=== PATIENT | female | born 1940 | race American Indian/Alaskan Native ===

== ENCOUNTER 2016-10-27 10:30 | Emergency (ER) | payer MEDICARE ==
--- NOTE | 2016-10-27 11:39 | Emergency Department Report ---
Chief Complaint: Abdominal Pain Stated Complaint: ADOMINAL PAIN Time Seen by Provider: 10/27/16 11:34 - HPI History of Present Illness: 76-year-old female presents today with abdominal pain 2-3 days. Patient states that she hasn't had a bowel movement ever since. Denies history of constipation. Denies fever, chills, chest pain, shortness of breath, nausea, vomiting. - ROS Review of Systems: Per HPI - Exam Vital Signs: Vital Signs 10/27/16 11:19 Temperature 97.8 F Pulse Rate 56 L Respiratory 18 Rate Blood Pressure 170/84 O2 Sat by Pulse 99 Oximetry Physical Exam: General: 76-year-old female in no acute distress. Well-developed, well- nourished. CV: Regular rate and rhythm. Lungs: Clear to auscultation bilaterally. Abdomen: Generalized tenderness to palpation. Nondistended. No guarding or rebound tenderness. MSE screening note: Focused history and physical exam performed. Due to findings the following was ordered: ED Disposition for MSE Condition: Stable Instructions: Abdominal Pain (ED)
[2016-10-27 12:06] LABS: Basophils % (Auto) 0.4 % (0.0-1.8); Eosinophils % (Auto) 1.4 % (0.0-4.3); Hematocrit 36.8 % (30.3-42.9); Hemoglobin 12.2 gm/dl (10.1-14.3); Mean Corpuscular HGB Conc 33 % (30-34); Mean Corpuscular Hemoglobin 30 pg (28-32); Mean Corpuscular Volume 90 fl (79-97); Platelet Count 199 K/mm3 (140-440); Red Blood Count 4.11 M/mm3 (3.65-5.03); Red Cell Distribution Width 13.6 % (13.2-15.2); White Blood Count 6.5 K/mm3 (4.5-11.0)
[2016-10-27 12:19] LABS: Amylase 102 units/L (27-131); BUN/Creatinine Ratio 16.25; Blood Urea Nitrogen 13 mg/dL (7-17); Calcium 9.1 mg/dL (8.4-10.2); Carbon Dioxide 29 mmol/L (22-30); Glucose 161 mg/dL (65-100); Lipase 39 units/L (13-60)
[2016-10-27 12:20] LABS: Anion Gap 16 mmol/L; Chloride 103.7 mmol/L (98-107); Potassium 3.7 mmol/L (3.6-5.0); Sodium 145 mmol/L (137-145)
--- NOTE | 2016-10-27 12:47 | XRay Report ---
ABDOMEN RADIOGRAPHS INDICATION: Constipation. COMPARISON: None similar. FINDINGS: Frontal abdominal radiographs demonstrate nonobstructive bowel gas pattern without focal suspicious calcifications, pneumatosis or pneumoperitoneum. Mild, usual colonic stool. Clear visualized lung bases. A battery pack overlies the left iliac bone with a probable left piriformis stimulator lead. Bladder tacking surgery. Demineralized bones with bilateral SI and hip degenerative changes. Multilevel spinal degenerative changes as well. Mild atherosclerotic aortoiliac calcifications. CONCLUSION: No acute abdominal radiographic abnormality with various findings, as above. Thank you for the opportunity to participate in this patient's care.
[2016-10-27] MEDS ORDERED: CEPHULAC PO ONE (17:35)
[2016-10-27] MEDS ORDERED: NACL ONE ×2 (17:40→17:57)
--- NOTE | 2016-10-27 17:40 | Emergency Department Report ---
HPI - General Chief Complaint: Abdominal Pain Time Seen by Provider: 10/27/16 11:34 - HPI HPI: Room 19 The patient is a 76-year-old female presenting with a chief complaint of abdominal pain. Patient states for the past 2 weeks she has intermittent lower abdominal pain described as "small and sharp" in nature. Patient denies nausea vomiting or diarrhea. The patient states she's been constipated and her last bowel movement occurred approximately 2-3 days ago. The patient states she normally has a bowel movement daily. Patient states she is able to pass flatus. Patient denies any history of fever. Location: Lower abdomen Duration:2 Weeks Quality: "small and sharp" Severity: Currently 0/10 Modifying factors: [see above] Context: [see above] Mode of transportation: Unknown ED Past Medical Hx - Past Medical History Hx Hypertension: Yes Hx CVA: Yes Hx Congestive Heart Failure: Yes Hx Diabetes: Yes Hx GERD: Yes Hx Arthritis: Yes Hx Asthma: Yes Hx COPD: Yes Hx Dementia: Yes Additional medical history: TIA. HIGH CHOLESTEROL - Surgical History Hx Cholecystectomy: Yes Hx Appendectomy: Yes Additional Surgical History: hysterectomy - Family History Family history: no significant - Social History Smoking Status: Never Smoker Substance Use Type: None, Other, Prescribed - Medications Home Medications: Home Medications Medication Instructions Recorded Confirmed Last Taken Type Montelukast [Singulair] 10 mg PO DAILY 06/20/13 03/03/16 03/02/16 History Atorvastatin Calcium [Lipitor] 20 mg PO QHS 09/13/15 03/03/16 03/02/16 History Cholecalciferol Vit D3 [Vitamin D3] 1,000 unit PO QDAY 09/13/15 03/03/16 History Omeprazole 40 mg PO DAILY 09/13/15 03/03/16 03/02/16 History Spironolactone [Aldactone] 25 mg PO DAILY 09/13/15 03/03/16 03/02/16 History Donepezil HCl [Donepezil HCl Odt] 5 mg PO QDAY 12/08/15 03/03/16 03/02/16 History Furosemide [Lasix TAB] 40 mg PO QDAY 12/08/15 03/03/16 03/02/16 History HYDROcodone/APAP 5-325 [[place] 1 each PO Q6HR PRN 04/05/1603/03/16 12/08/15 History 5-325 mg TAB] Simvastatin [Zocor TAB] 40 mg PO QHS 12/08/15 03/03/16 03/02/16 History Sitagliptin Phosphate [Januvia] 50 mg PO QDAY 12/08/15 03/03/16 03/02/16 History Lisinopril [Zestril TAB] 20 mg PO BID #60 tablet 12/09/15 03/03/16 03/02/16 Rx Metoprolol [Lopressor TAB] 100 mg PO BID tablet 12/09/15 03/03/16 03/02/16 Rx hydrALAZINE [Apresoline TAB] 25 mg PO Q8HR #90 tab 12/09/15 03/03/16 03/02/16 Rx Aspirin [Aspirin BABY CHEW TAB] 81 mg PO QDAY 03/03/16 03/03/16 03/03/16 History Polyethylene Glycol 3350 [Miralax 17 gm PO QDAY #30 packet 03/04/16 Unknown Rx 3350] Clotrimazole [Itch Relief] 15 gm TP TID #1 cream..g. 07/23/16 Unknown Rx Hydrocortisone 28.4 gm TP BID #1 cream..g. 07/23/16 Unknown Rx Hydroxyzine HCl 25 mg PO BID PRN #25 tablet 07/23/16 Unknown Rx Lactulose [Cephulac] 20 gm PO QDAY PRN #90 ml 10/27/16 Unknown Rx Sulfamethoxazole/Trimethoprim 1 each PO BID #14 tablet 10/27/16 Unknown Rx [Bactrim DS TAB] ED Review of Systems ROS: Stated complaint: ADOMINAL PAIN Other details as noted in HPI Comment: All other systems reviewed and negative Constitutional: denies: chills, fever Eyes: denies: eye pain, eye discharge, vision change ENT: denies: ear pain, throat pain Respiratory: denies: cough, shortness of breath, wheezing Cardiovascular: denies: chest pain, palpitations Endocrine: no symptoms reported Gastrointestinal: abdominal pain, constipation. denies: nausea, vomiting, diarrhea Genitourinary: denies: urgency, dysuria, discharge Musculoskeletal: denies: back pain, joint swelling, arthralgia Skin: denies: rash, lesions Neurological: denies: headache, weakness, paresthesias Psychiatric: denies: anxiety, depression Hematological/Lymphatic: denies: easy bleeding, easy bruising Physical Exam - Physical Exam Vital Signs: Vital Signs 10/27/16 11:19 Temperature 97.8 F Pulse Rate 56 L Respiratory 18 Rate Blood Pressure 170/84 O2 Sat by Pulse 99 Oximetry Physical Exam: GENERAL: The patient is well-developed well-nourished female lying on stretcher not appearing to be in acute distress. [] HEENT: Normocephalic. Atraumatic. Extraocular motions are intact. Patient has moist mucous membranes. NECK: Supple. Trachea midline CHEST/LUNGS: Clear to auscultation. There is no respiratory distress noted. HEART/CARDIOVASCULAR: Regular. There is no tachycardia. There is no gallop rub or murmur. ABDOMEN: Abdomen is soft, with mild discomfort to palpation in the left lower quadrant. Patient has normal bowel sounds. There is no abdominal distention. SKIN: There is no rash. There is no edema. There is no diaphoresis. NEURO: The patient is awake, alert, and oriented. The patient is cooperative. The patient has normal speech MUSCULOSKELETAL: There is no evidence of acute injury. ED Course Vital Signs 10/27/16 11:19 Temperature 97.8 F Pulse Rate 56 L Respiratory 18 Rate Blood Pressure 170/84 O2 Sat by Pulse 99 Oximetry ED Medical Decision Making - Lab Data Result diagrams: 10/27/16 11:52 10/27/16 11:52 Laboratory Tests 10/27/16 10/27/16 11:52 11:52 WBC 6.5 RBC 4.11 Hgb 12.2 Hct 36.8 MCV 90 MCH 30 MCHC 33 RDW 13.6 Plt Count 199 Lymph % (Auto) 30.3 [place] % (Auto) 8.1 H Eos % (Auto) 1.4 Baso % (Auto) 0.4 Lymph # 2.0 [place] # 0.5 Eos # 0.1 Baso # 0.0 Seg Neutrophils % 59.8 Seg Neutrophils # 3.9 Sodium 145 Potassium 3.7 Chloride 103.7 Carbon Dioxide 29 Anion Gap 16 BUN 13 Creatinine 0.8 Estimated GFR > 60 BUN/Creatinine Ratio 16.25 Glucose 161 H Calcium 9.1 Amylase 102 Lipase 39 Laboratory Tests 10/27/16 10/27/16 10/27/16 11:52 11:52 19:05 WBC 6.5 RBC 4.11 Hgb 12.2 Hct 36.8 MCV 90 MCH 30 MCHC 33 RDW 13.6 Plt Count 199 Lymph % (Auto) 30.3 [place] % (Auto) 8.1 H Eos % (Auto) 1.4 Baso % (Auto) 0.4 Lymph # 2.0 [place] # 0.5 Eos # 0.1 Baso # 0.0 Seg Neutrophils % 59.8 Seg Neutrophils # 3.9 Sodium 145 Potassium 3.7 Chloride 103.7 Carbon Dioxide 29 Anion Gap 16 BUN 13 Creatinine 0.8 Estimated GFR > 60 BUN/Creatinine Ratio 16.25 Glucose 161 H Calcium 9.1 Amylase 102 Lipase 39 Urine Color Yellow Urine Turbidity Clear Urine pH 7.0 Urine Protein <15 mg/dl Urine Glucose (UA) Neg Urine Ketones Neg Urine Blood Neg Urine Nitrite Neg Urine Bilirubin Neg Urine Urobilinogen < 2.0 Ur Leukocyte Esterase Mod Urine WBC (Auto) 21.0 H Urine RBC (Auto) 1.0 U Epithel Cells (Auto) < 1.0 Urine Mucus Few - Radiology Data Radiology results: report reviewed (CT abdomen the pelvis), image reviewed ( abdominal x-ray, CT abdomen and pelvis) interpreted by me: Abdominal x-ray-no air-fluid levels, no free air CT abdomen and pelvis (read by radiologist)-possible changes of duodenitis are seen in the [place]. Large left renal cysts are seen. No constipation is seen - Differential Diagnosis constipation, diverticulitis, SBO, UTI Critical care attestation.: If time is entered above; I have spent that time in minutes in the direct care of this critically ill patient, excluding procedure time. ED Disposition Clinical Impression: Abdominal pain, Constipation, UTI (urinary tract infection) Disposition: DISCHARGED TO HOME OR SELFCARE Is pt being admited?: No Does the pt Need Aspirin: No Condition: Stable Instructions: Abdominal Pain (ED) Additional Instructions: Return to the emergency department immediately should you develop worsening symptoms, fever, inability to tolerate food or liquid or any other concerns. Prescriptions: Lactulose [Cephulac] 20 gm PO QDAY PRN #90 ml PRN Reason: Constipation Sulfamethoxazole/Trimethoprim [Bactrim DS TAB] 1 each PO BID #14 tablet Referrals: PRIMARY CAREMD [Primary Care Provider] - 3-5 Days EDIS ORELLANA MD [Staff Physician] - 3-5 Days (Dr. Orellana is a urologist. Please follow up with him for further evaluation of your renal cyst) Time of Disposition: 19:52
--- NOTE | 2016-10-27 18:43 | Cat Scan Report ---
FINAL REPORT PROCEDURE: CT ABDOMEN PELVIS W CON TECHNIQUE: Computerized axial tomography of the abdomen and pelvis was performed after the IV injection of iodinated nonionic contrast. HISTORY: lower abd pain greatest on the left. Constipation COMPARISON: No prior studies are available for comparison. FINDINGS: There is a small hiatus hernia. There is wall thickening suspected in the duodenal bulb that could be from duodenitis. Normal appendix is seen. No evidence of bowel obstruction or constipation is seen. Liver and spleen appear normal. The gallbladder and pancreas display no abnormalities. Adrenal glands and abdominal aorta are normal in size. Stimulator lead is seen in the left side of the presacral space. No right renal abnormality is seen. 7.5 cm cyst is seen in the mid left kidney with a 2nd cyst seen more superiorly measuring 7.2 cm. No nephrolithiasis or hydronephrosis is seen. IMPRESSION: Possible changes of duodenitis are seen in the duodenal bulb. Large left renal cysts are seen. No constipation is seen.
[2016-10-27 19:38] LABS: Bilirubin,Urine NEG (Negative); Blood,Urine NEG (Negative); Ketones,Urine NEG (Negative); Leukocyte Esterase,Urine MOD (Negative); Mucus,Urine FEW /HPF; Nitrite,Urine NEG (Negative); Protein,Urine <15 mg/dL mg/dL (Negative); Urobilinogen,Urine < 2.0 mg/dL (<2.0)
[2016-10-27 20:16] VITALS: BP 154/59
== END 2016-10-27 20:19 | disposition home or self-care (01) ==
LOC: ED 10:30
DX: K59.00 Constipation, unspecified (principal); N39.0 Urinary tract infection, site not specified; I10 Essential (primary) hypertension; I50.9 Heart failure, unspecified; E11.9 Type 2 diabetes mellitus without complications; K21.9 Gastro-esophageal reflux disease without esophagitis; M19.90 Unspecified osteoarthritis, unspecified site; J44.9 Chronic obstructive pulmonary disease, unspecified; J45.909 Unspecified asthma, uncomplicated; F03.90 Unspecified dementia, unspecified severity, without behavioral disturbance, psychotic disturbance, mood disturbance, and anxiety; E78.00 Pure hypercholesterolemia, unspecified; Z90.49 Acquired absence of other specified parts of digestive tract; Z86.73 Personal history of transient ischemic attack (TIA), and cerebral infarction without residual deficits; Z90.710 Acquired absence of both cervix and uterus; Z79.82 Long term (current) use of aspirin
CPT/HCPCS: 36415; 74000; 74177; 80048; 81001; 82150; 83690; 85025; 99284; Q9967

== ENCOUNTER 2016-12-01 10:46 | Outpatient (CLI) | payer MEDICARE ==
--- NOTE | 2016-12-01 14:08 | Mammography Report ---
Bilateral mammogram: Compared to 11/30/15. CAD study utilized. Findings: The predominance of adipose tissue bilaterally. No mass or microcalcification. Normal axilla. Impression: Benign findings and followup recommended. BI-RADS CATEGORY: 2 = Benign ACR BI-RADS MAMMOGRAPHIC CODES: 0 = Needs additional imaging evaluation; 1 = Negative; 2 = Benign; 3 = Probably benign; 4 = Suspicious; 5 = Malignant; 6 = Known biopsy-proven malignancy COMMENT: 1. Dense breast tissue, i.e., adenosis, fibrocystic changes, etc., may obscure an underlying neoplasm. 2. Approximately 10% of cancers are not detected with mammography. 3. A negative mammography report should not delay biopsy if a clinically suspicious mass is present. COMMENT: Patient follow-up letters are generated in [email or web address].
== END 2016-12-01 10:47 | disposition home or self-care (01) ==
LOC: MAMMO 10:46
PROVIDERS: ATTEND Family Medicine
DX: Z12.31 Encounter for screening mammogram for malignant neoplasm of breast (principal)
CPT/HCPCS: 77067; G0202

== ENCOUNTER 2017-03-12 22:31 | Emergency (ER) | payer MEDICARE ==
[2017-03-12 23:13] LABS: Basophils % (Auto) 0.3 % (0.0-1.8); Hemoglobin 12.2 gm/dl (10.1-14.3); Mean Corpuscular HGB Conc 33 % (30-34); Mean Corpuscular Hemoglobin 29 pg (28-32); Mean Corpuscular Volume 89 fl (79-97); Platelet Count 203 K/mm3 (140-440); Red Blood Count 4.18 M/mm3 (3.65-5.03)
[2017-03-12 23:44] LABS: Alanine Aminotransferase 23 units/L (7-56); Alkaline Phosphatase 157 units/L (35-129); Anion Gap 15 mmol/L; BUN/Creatinine Ratio 21.42; Blood Urea Nitrogen 15 mg/dL (7-17); Calcium 9.3 mg/dL (8.4-10.2); Carbon Dioxide 28 mmol/L (22-30); Chloride 99.1 mmol/L (98-107); Glucose 199 mg/dL (65-100); Potassium 3.6 mmol/L (3.6-5.0); Sodium 138 mmol/L (137-145); Total Protein 8.2 g/dL (6.3-8.2)
[2017-03-13 03:40] LABS: Bilirubin,Urine Negative (Negative)
[2017-03-13 03:41] LABS: Bacteria,Urine 2+ /HPF (Negative); Blood,Urine Negative (Negative); Ketones,Urine Negative (Negative); Leukocyte Esterase,Urine Moderate (Negative); Nitrite,Urine Positive (Negative); Urobilinogen,Urine 0.2 mg/dL (<2.0); WBC,Urine > 182.0 /HPF (0.0-6.0)
[2017-03-13] MEDS ORDERED: MORPHINE IV ONE (06:47)
[2017-03-13] MEDS ORDERED: ZOFRAN IV ONE (06:47)
[2017-03-13] MEDS ORDERED: BENTYL IM ONE (06:48)
[2017-03-13] MEDS ORDERED: NACL ONE (06:58)
[2017-03-13] MEDS ORDERED: NACL 0.9% 1000 ML 1,000 ML IV ONE (07:35)
--- NOTE | 2017-03-13 07:41 | Emergency Department Report ---
ED Abdominal Pain HPI - General Chief Complaint: Abdominal Pain Stated Complaint: ABD PAIN/UNCONTROLLABLE BLADDER LEAK Time Seen by Provider: 03/13/17 06:14 Source: patient, family Mode of arrival: Wheelchair Limitations: No Limitations - History of Present Illness Initial Comments: 76-year-old female with past medical history of hypertension and is presenting to the ED complaining of abdominal pain. Also started 1 day prior to ED arrival. Pain is located left lower quadrant. Pain is constant, nonradiating, no relaxing or worsening factors. Pain has been accompanied by several episodes of nausea and vomiting that were nonbloody nonbilious. Currently patient states since presenting to the emergency Department pain has mildly improved. Patient denies: Fever/chills, chest pain, diarrhea. Patient states she's had pain similar to this in the past when she's been diagnosed with UTI. MD Complaint: abdominal pain -: Sudden Location: LLQ Radiation: none Migration to: no migration Severity scale (0 -10): 2 Quality: cramping Consistency: constant Improves With: nothing Worsens With: nothing Associated Symptoms: nausea, vomiting (non bloody ). denies: diarrhea, constipation, dysuria, hematemesis, melena, hematuria, anorexia - Related Data Home Medications Medication Instructions Recorded Confirmed Last Taken Montelukast [Singulair] 10 mg PO DAILY 06/20/13 03/13/17 03/02/16 Atorvastatin Calcium [Lipitor] 20 mg PO QHS 09/13/15 03/13/17 03/02/16 Cholecalciferol Vit D3 [Vitamin D3] 1,000 unit PO QDAY 09/13/15 03/13/17 Omeprazole 40 mg PO DAILY 09/13/15 03/13/17 03/02/16 Spironolactone [Aldactone] 25 mg PO DAILY 09/13/15 03/13/17 03/02/16 Donepezil HCl [Donepezil HCl Odt] 5 mg PO QDAY 12/08/15 03/13/17 03/02/16 Furosemide [Lasix TAB] 40 mg PO QDAY 12/08/15 03/13/17 03/02/16 Simvastatin [Zocor TAB] 40 mg PO QHS 12/08/15 03/13/17 03/02/16 Sitagliptin Phosphate [Januvia] 50 mg PO QDAY 12/08/15 03/13/17 03/02/16 Aspirin [Aspirin BABY CHEW TAB] 81 mg PO QDAY 03/03/16 03/13/17 03/03/16 Previous Rx's Medication Instructions Recorded Last Taken Type Lisinopril [Zestril TAB] 20 mg PO BID #60 tablet 12/09/15 03/02/16 Rx Metoprolol [Lopressor TAB] 100 mg PO BID tablet 12/09/15 03/02/16 Rx hydrALAZINE [Apresoline TAB] 25 mg PO Q8HR #90 tab 12/09/15 03/02/16 Rx Polyethylene Glycol 3350 [Miralax 17 gm PO QDAY #30 packet 03/04/16 Unknown Rx 3350] Hydrocortisone 28.4 gm TP BID #1 cream..g. 07/23/16 Unknown Rx Hydroxyzine HCl 25 mg PO BID PRN #25 tablet 07/23/16 Unknown Rx Lactulose [Cephulac] 20 gm PO QDAY PRN #90 ml 10/27/16 Unknown Rx Ciprofloxacin HCl [Ciprofloxacin 500 mg PO Q12HR #20 tab 03/13/17 Unknown Rx TAB] Famotidine [Pepcid] 20 mg PO BID #40 tablet 03/13/17 Unknown Rx HYDROcodone/APAP 5-325 [[place] 1 each PO Q6HR PRN #10 tablet 03/13/17 Unknown Rx 5/325] Ondansetron [Zofran Odt] 4 mg PO Q8HR #15 tab.rapdis 03/13/17 Unknown Rx metroNIDAZOLE [Flagyl] 500 mg PO Q12HR #20 tab 03/13/17 Unknown Rx Allergies Allergy/AdvReac Type Severity Reaction Status Date / Time Penicillins Allergy Unknown Verified 07/23/16 13:34 ED Review of Systems ROS: Stated complaint: ABD PAIN/UNCONTROLLABLE BLADDER LEAK Other details as noted in HPI Constitutional: denies: chills, fever Eyes: denies: eye pain, eye discharge, vision change ENT: denies: ear pain, throat pain Respiratory: denies: cough, shortness of breath, wheezing Cardiovascular: denies: chest pain, palpitations Endocrine: no symptoms reported Gastrointestinal: abdominal pain, vomiting. denies: nausea, diarrhea, constipation, hematemesis Genitourinary: denies: urgency, dysuria, discharge Musculoskeletal: denies: back pain, joint swelling, arthralgia Skin: denies: rash, lesions Neurological: denies: headache, weakness, paresthesias Psychiatric: denies: anxiety, depression Hematological/Lymphatic: denies: easy bleeding, easy bruising ED Past Medical Hx - Past Medical History Previous Medical History?: Yes Hx Hypertension: Yes Hx CVA: Yes Hx Congestive Heart Failure: Yes Hx Diabetes: Yes Hx GERD: Yes Hx Arthritis: Yes Hx Asthma: Yes Hx COPD: Yes Hx Dementia: Yes Additional medical history: TIA. HIGH CHOLESTEROL - Surgical History Past Surgical History?: Yes Hx Cholecystectomy: Yes Hx Appendectomy: Yes Additional Surgical History: hysterectomy - Social History Smoking Status: Never Smoker Substance Use Type: None - Medications Home Medications: Home Medications Medication Instructions Recorded Confirmed Last Taken Type Montelukast [Singulair] 10 mg PO DAILY 06/20/13 03/13/17 03/02/16 History Atorvastatin Calcium [Lipitor] 20 mg PO QHS 09/13/15 03/13/17 03/02/16 History Cholecalciferol Vit D3 [Vitamin D3] 1,000 unit PO QDAY 09/13/15 03/13/17 History Omeprazole 40 mg PO DAILY 09/13/15 03/13/17 03/02/16 History Spironolactone [Aldactone] 25 mg PO DAILY 09/13/15 03/13/17 03/02/16 History Donepezil HCl [Donepezil HCl Odt] 5 mg PO QDAY 12/08/15 03/13/17 03/02/16 History Furosemide [Lasix TAB] 40 mg PO QDAY 12/08/15 03/13/17 03/02/16 History Simvastatin [Zocor TAB] 40 mg PO QHS 12/08/15 03/13/17 03/02/16 History Sitagliptin Phosphate [Januvia] 50 mg PO QDAY 12/08/15 03/13/17 03/02/16 History Lisinopril [Zestril TAB] 20 mg PO BID #60 tablet 12/09/15 03/13/17 03/02/16 Rx Metoprolol [Lopressor TAB] 100 mg PO BID tablet 12/09/15 03/13/17 03/02/16 Rx hydrALAZINE [Apresoline TAB] 25 mg PO Q8HR #90 tab 12/09/15 03/13/17 03/02/16 Rx Aspirin [Aspirin BABY CHEW TAB] 81 mg PO QDAY 03/03/16 03/13/17 03/03/16 History Polyethylene Glycol 3350 [Miralax 17 gm PO QDAY #30 packet 03/04/16 03/13/17 Unknown Rx 3350] Hydrocortisone 28.4 gm TP BID #1 cream..g. 07/23/16 03/13/17 Unknown Rx Hydroxyzine HCl 25 mg PO BID PRN #25 tablet 07/23/16 03/13/17 Unknown Rx Lactulose [Cephulac] 20 gm PO QDAY PRN #90 ml 10/27/16 03/13/17 Unknown Rx Ciprofloxacin HCl [Ciprofloxacin 500 mg PO Q12HR #20 tab 03/13/17 Unknown Rx TAB] Famotidine [Pepcid] 20 mg PO BID #40 tablet 03/13/17 Unknown Rx HYDROcodone/APAP 5-325 [[place] 1 each PO Q6HR PRN #10 tablet 03/13/17 Unknown Rx 5/325] Ondansetron [Zofran Odt] 4 mg PO Q8HR #15 tab.rapdis 03/13/17 Unknown Rx metroNIDAZOLE [Flagyl] 500 mg PO Q12HR #20 tab 03/13/17 Unknown Rx ED Physical Exam - General Limitations: No Limitations General appearance: alert, in no apparent distress - Head Head exam: Present: atraumatic, normocephalic - Eye Eye exam: Present: normal appearance - ENT ENT exam: Present: mucous membranes moist - Neck Neck exam: Present: normal inspection - Respiratory Respiratory exam: Present: normal lung sounds bilaterally. Absent: respiratory distress - Cardiovascular Cardiovascular Exam: Present: regular rate, normal rhythm. Absent: systolic murmur, diastolic murmur, rubs, gallop - GI/Abdominal GI/Abdominal exam: Present: soft (mild tenderness in Left Lower Quadrant ), tenderness, normal bowel sounds. Absent: distended, guarding, rebound - Extremities Exam Extremities exam: Present: normal inspection - Back Exam Back exam: Present: normal inspection - Neurological Exam Neurological exam: Present: alert, oriented X3 - Psychiatric Psychiatric exam: Present: normal affect, normal mood - Skin Skin exam: Present: warm, dry, intact, normal color. Absent: rash ED Course Vital Signs 03/12/17 03/13/17 03/13/17 22:46 03:29 05:30 Temperature 98.3 F 98.5 F Pulse Rate 112 H 99 H Respiratory 18 16 18 Rate Blood Pressure 157/80 147/66 O2 Sat by Pulse 96 98 98 Oximetry 03/13/17 03/13/17 07:00 07:30 Temperature Pulse Rate Respiratory 18 16 Rate Blood Pressure O2 Sat by Pulse Oximetry - Reevaluation(s) Reevaluation #1: 03/13/17 08:46 Patient resting comfortably states pain is improved. ED Medical Decision Making - Lab Data Result diagrams: 03/12/17 22:55 03/12/17 22:55 - EKG Data -: EKG Interpreted by Me EKG shows normal: sinus rhythm (78), axis (positive ), intervals (QTC 451), QRS complexes (84) - EKG Data When compared to previous EKG there are: previous EKG unavailable - Radiology Data Radiology results: report reviewed, image reviewed Final impression: Moderate size hiatal hernia. Evidence of duodenitis. Dilated pancreatic duct without interval change. A 8.5 cm dilated left renal cyst. - Medical Decision Making 76-year-old female with past history of hypertension presenting to the ED complaining of LLQ and suprapubic pain. Patient's workup is positive for duodenitis seen on CT, and UTI. Patient states her pain is improved significantly secondary to medications given the ED and she may discharge home. Patient informed of elevated alkaline phosphatase that's nonspecific at this time however I advised her to follow-up with her PCP, she's been given a copy of her CT and lab work from patient follow-up. Patient verbalized understanding of return precautions. Repeat abdominal exam prior to discharge: Soft, nontender, patient tolerating oral liquids and solids. - Differential Diagnosis appendicitis, colitis, diveritculitis , acs Critical Care Time: No Critical care attestation.: If time is entered above; I have spent that time in minutes in the direct care of this critically ill patient, excluding procedure time. ED Disposition Clinical Impression: UTI (urinary tract infection), Abdominal pain, Duodenitis Disposition: - TO HOME OR SELFCARE Is pt being admited?: No Does the pt Need Aspirin: No Condition: Stable Instructions: Abdominal Pain (ED) Prescriptions: Ciprofloxacin HCl [Ciprofloxacin TAB] 500 mg PO Q12HR #20 tab Famotidine [Pepcid] 20 mg PO BID #40 tablet HYDROcodone/APAP 5-325 [[place] 5/325] 1 each PO Q6HR PRN #10 tablet PRN Reason: Pain metroNIDAZOLE [Flagyl] 500 mg PO Q12HR #20 tab Ondansetron [Zofran Odt] 4 mg PO Q8HR #15 tab.beatrice Referrals: PRIMARY CARE,MD [Primary Care Provider] - 3-5 Days
--- NOTE | 2017-03-13 07:54 | Cat Scan Report ---
Abdomen pelvis with IV contrast: Compared to 10/27/16. History: Left lower quadrant pain. Findings: Normal lung bases. No pleural or pericardial effusion. Moderate size hiatal hernia. Thick walled duodenum and part of stomach probably related to duodenitis. Normal liver normal spleen. Dilated pancreatic duct without significant interval change. Normal adrenals. Cyst in the left kidney measures 8.5 cm. No calculi. No hydronephrosis. Normal bladder. No free intraperitoneal fluid or air. No evidence of adenopathy. Atherosclerotic abdominal aorta without aneurysm. Fluid filled loops of small bowel and large bowel. No bowel distention or wall thickening. No evidence of appendicitis or diverticulitis. Impression: Moderate size hiatal hernia. Evidence of duodenitis. Dilated pancreatic duct without interval change. 8.5 cm diameter left renal cyst.
[2017-03-13] MEDS ORDERED: LEVAQUIN PO ONE (08:48)
[2017-03-13] MEDS ORDERED: PEPCID PO ONE (08:48)
[2017-03-13 10:23] VITALS: BP 177/70
== END 2017-03-13 10:40 | disposition home or self-care (01) ==
LOC: ED 22:31
DX: N39.0 Urinary tract infection, site not specified (principal); K29.80 Duodenitis without bleeding; I10 Essential (primary) hypertension; I50.9 Heart failure, unspecified; E11.9 Type 2 diabetes mellitus without complications; K21.9 Gastro-esophageal reflux disease without esophagitis; J45.909 Unspecified asthma, uncomplicated; J44.9 Chronic obstructive pulmonary disease, unspecified
CPT/HCPCS: 36415; 74177; 80053; 81001; 84484; 85025; 93005; 93010; 96361; 96372; 96374; 96375; 99284; J0500; J2270; J2405; J7030; Q9967

== ENCOUNTER 2017-03-16 11:58 | Emergency (ER) | payer MEDICARE ==
[2017-03-16 13:24] LABS: Hematocrit 33.9 % (30.3-42.9); Hemoglobin 11.6 gm/dl (10.1-14.3); Mean Corpuscular HGB Conc 34 % (30-34); Mean Corpuscular Hemoglobin 31 pg (28-32); Mean Corpuscular Volume 89 fl (79-97); Platelet Count 186 K/mm3 (140-440); White Blood Count 3.6 K/mm3 (4.5-11.0)
[2017-03-16 13:29] LABS: Alanine Aminotransferase 29 units/L (7-56); Albumin 3.6 g/dL (3.9-5); Alkaline Phosphatase 129 units/L (35-129); Anion Gap 18 mmol/L; Blood Urea Nitrogen 14 mg/dL (7-17); Calcium 9.2 mg/dL (8.4-10.2); Carbon Dioxide 23 mmol/L (22-30); Chloride 103.8 mmol/L (98-107); Glucose 168 mg/dL (65-100); Potassium 3.7 mmol/L (3.6-5.0); Sodium 141 mmol/L (137-145); Total Protein 7.3 g/dL (6.3-8.2)
[2017-03-16 13:32] LABS: INR 1.09 (0.87-1.13)
[2017-03-16 13:33] LABS: Partial Thromboplastin Time 30.9 Sec. (24.2-36.6)
[2017-03-16 14:18] LABS: Blastocytes % (Manual) 0 %
[2017-03-16 14:19] LABS: Diff Status Complete; RBC Morphology Normal
--- NOTE | 2017-03-16 22:19 | Emergency Department Report ---
HPI - General Chief Complaint: GI Bleed Time Seen by Provider: 03/16/17 22:04 - HPI HPI: Chief complaint: my stools are black 76-year-old -Italian female presented to the ED with the complaint of black stools since he started taking metronidazole for her UTI. She denies any weakness fever or chills night sweats. She also complained of some left low quadrant abdominal rash scaly 5 x 1 cm area. No diarrhea. Patient does not recall if she has taken Flagyl in the past. Patient denies any history of upper or lower GI bleed. No history of ulcers according to the patient. ED Past Medical Hx - Past Medical History Hx Hypertension: Yes Hx CVA: Yes Hx Congestive Heart Failure: Yes Hx Diabetes: Yes Hx GERD: Yes Hx Arthritis: Yes Hx Asthma: Yes Hx COPD: Yes Hx Dementia: Yes Additional medical history: TIA. HIGH CHOLESTEROL - Surgical History Hx Cholecystectomy: Yes Hx Appendectomy: Yes Additional Surgical History: hysterectomy - Social History Smoking Status: Never Smoker Substance Use Type: None - Medications Home Medications: Home Medications Medication Instructions Recorded Confirmed Last Taken Type Montelukast [Singulair] 10 mg PO DAILY 06/20/13 03/13/17 03/02/16 History Atorvastatin Calcium [Lipitor] 20 mg PO QHS 09/13/15 03/13/17 03/02/16 History Cholecalciferol Vit D3 [Vitamin D3] 1,000 unit PO QDAY 09/13/15 03/13/17 History Omeprazole 40 mg PO DAILY 09/13/15 03/13/17 03/02/16 History Spironolactone [Aldactone] 25 mg PO DAILY 09/13/15 03/13/17 03/02/16 History Donepezil HCl [Donepezil HCl Odt] 5 mg PO QDAY 12/08/15 03/13/17 03/02/16 History Furosemide [Lasix TAB] 40 mg PO QDAY 12/08/15 03/13/17 03/02/16 History Simvastatin [Zocor TAB] 40 mg PO QHS 12/08/15 03/13/17 03/02/16 History Sitagliptin Phosphate [Januvia] 50 mg PO QDAY 12/08/15 03/13/17 03/02/16 History Lisinopril [Zestril TAB] 20 mg PO BID #60 tablet 12/09/15 03/13/17 03/02/16 Rx Metoprolol [Lopressor TAB] 100 mg PO BID tablet 12/09/15 03/13/17 03/02/16 Rx hydrALAZINE [Apresoline TAB] 25 mg PO Q8HR #90 tab 12/09/15 03/13/17 03/02/16 Rx Aspirin [Aspirin BABY CHEW TAB] 81 mg PO QDAY 03/03/16 03/13/17 03/03/16 History Polyethylene Glycol 3350 [Miralax 17 gm PO QDAY #30 packet 03/04/16 03/13/17 Unknown Rx 3350] Hydrocortisone 28.4 gm TP BID #1 cream..g. 07/23/16 03/13/17 Unknown Rx Hydroxyzine HCl 25 mg PO BID PRN #25 tablet 07/23/16 03/13/17 Unknown Rx Lactulose [Cephulac] 20 gm PO QDAY PRN #90 ml 10/27/16 03/13/17 Unknown Rx Ciprofloxacin HCl [Ciprofloxacin 500 mg PO Q12HR #20 tab 03/13/17 Unknown Rx TAB] Famotidine [Pepcid] 20 mg PO BID #40 tablet 03/13/17 Unknown Rx HYDROcodone/APAP 5-325 [[place] 1 each PO Q6HR PRN #10 tablet 03/13/17 Unknown Rx 5/325] Ondansetron [Zofran Odt] 4 mg PO Q8HR #15 tab.rapdis 03/13/17 Unknown Rx metroNIDAZOLE [Flagyl] 500 mg PO Q12HR #20 tab 03/13/17 Unknown Rx Ciprofloxacin HCl [Ciprofloxacin 250 mg PO BID #10 tablet 03/16/17 Unknown Rx TAB] Triamcinolone 0.5% [Kenalog 0.5% 1 applic TP TID #1 tube 03/16/17 Unknown Rx CREAM] ED Review of Systems ROS: Stated complaint: HERNIA Other details as noted in HPI Comment: All other systems reviewed and negative Respiratory: no symptoms reported Gastrointestinal: nausea Skin: rash Physical Exam - Physical Exam Vital Signs: Vital Signs 03/16/17 03/16/17 12:11 21:35 Temperature 98.0 F Pulse Rate 75 84 Respiratory 18 16 Rate Blood Pressure 153/92 Blood Pressure 175/94 [Left] O2 Sat by Pulse 97 95 Oximetry Physical Exam: Vitals signs reviewed Gen. alert and oriented 3 in no distress Head atraumatic normocephalic Eyes PERR LA EOMI Chest regular rate and rhythm normal S1-S2 lungs clear bilaterally Abdomen soft nondistended Back no point tenderness paravertebral tenderness Neuro no focal deficit. Psych normal mood. Skin left lower quadrant rash scaly. ED Course Vital Signs 03/16/17 03/16/17 12:11 21:35 Temperature 98.0 F Pulse Rate 75 84 Respiratory 18 16 Rate Blood Pressure 153/92 Blood Pressure 175/94 [Left] O2 Sat by Pulse 97 95 Oximetry ED Medical Decision Making - Lab Data Result diagrams: 03/16/17 12:57 03/16/17 12:57 Critical care attestation.: If time is entered above; I have spent that time in minutes in the direct care of this critically ill patient, excluding procedure time. ED Disposition Clinical Impression: Medication reaction, Rash due to allergy Disposition: DC-01 TO HOME OR SELFCARE Is pt being admited?: No Does the pt Need Aspirin: No Condition: Stable Prescriptions: Ciprofloxacin HCl [Ciprofloxacin TAB] 250 mg PO BID #10 tablet Triamcinolone 0.5% [Kenalog 0.5% CREAM] 1 applic TP TID #1 tube Referrals: MARIANA GILLIAM MD [Primary Care Provider] - 3-5 Days CHIQUITA LEDEZMA MD [Staff Physician] - 3-5 Days Forms: Accompanied Note
[2017-03-16 22:36] VITALS: BP 178/81
== END 2017-03-16 22:39 | disposition home or self-care (01) ==
LOC: ED 11:58
DX: R21 Rash and other nonspecific skin eruption (principal); T50.905A Adverse effect of unspecified drugs, medicaments and biological substances, initial encounter; Z86.73 Personal history of transient ischemic attack (TIA), and cerebral infarction without residual deficits; I10 Essential (primary) hypertension; I50.9 Heart failure, unspecified; E11.9 Type 2 diabetes mellitus without complications; M19.90 Unspecified osteoarthritis, unspecified site; F03.90 Unspecified dementia, unspecified severity, without behavioral disturbance, psychotic disturbance, mood disturbance, and anxiety; E78.00 Pure hypercholesterolemia, unspecified; J45.909 Unspecified asthma, uncomplicated; Z90.710 Acquired absence of both cervix and uterus; Z79.82 Long term (current) use of aspirin; Z88.0 Allergy status to penicillin
CPT/HCPCS: 36415; 80053; 85007; 85025; 85610; 85730; 99283

== ENCOUNTER 2018-03-14 15:52 | Inpatient (IN) | payer MEDICARE ==
--- NOTE | 2018-03-14 16:03 | Emergency Department Report ---
ED Altered Mental Status HPI - General Stated Complaint: ALTERED MENTAL STATUS Time Seen by Provider: 03/14/18 15:52 Source: patient, EMS Mode of arrival: Stretcher Limitations: Altered Mental Status - History of Present Illness Initial Comments: Patient is a 77-year-old female that presents to emergency room with altered mental status,. History per EMS, patient was found unresponsive by family and the family called EMS. Patient came to prior to EMS arriving at the house and was confused per family. Patient does have a history of dementia. EMS found the patient to be tachycardic and hypotension and low temperature. Patient was given fluids and adenosine for her SVT, SVT converted in route. Temperature in route was 95. patient given a bolus of fluid by EMS. At this time patient is a note 2. Patient answers most questions appropriately. MD Complaint: altered mental status, confusion, decreased responsiveness -: Sudden - Related Data Home Medications Medication Instructions Recorded Confirmed Last Taken Montelukast [Singulair] 10 mg PO DAILY 06/20/13 03/13/17 03/02/16 Atorvastatin Calcium [Lipitor] 20 mg PO QHS 09/13/15 03/13/17 03/02/16 Cholecalciferol Vit D3 [Vitamin D3] 1,000 unit PO QDAY 09/13/15 03/13/17 Omeprazole 40 mg PO DAILY 09/13/15 03/13/17 03/02/16 Spironolactone [Aldactone] 25 mg PO DAILY 09/13/15 03/13/17 03/02/16 Donepezil HCl [Donepezil HCl Odt] 5 mg PO QDAY 12/08/15 03/13/17 03/02/16 Furosemide [Lasix TAB] 40 mg PO QDAY 12/08/15 03/13/17 03/02/16 Simvastatin [Zocor TAB] 40 mg PO QHS 12/08/15 03/13/17 03/02/16 Sitagliptin Phosphate [Januvia] 50 mg PO QDAY 12/08/15 03/13/17 03/02/16 Aspirin [Aspirin BABY CHEW TAB] 81 mg PO QDAY 03/03/16 03/13/17 03/03/16 Previous Rx's Medication Instructions Recorded Last Taken Type Lisinopril [Zestril TAB] 20 mg PO BID #60 tablet 12/09/15 03/02/16 Rx Metoprolol [Lopressor TAB] 100 mg PO BID tablet 12/09/15 03/02/16 Rx hydrALAZINE [Apresoline TAB] 25 mg PO Q8HR #90 tab 12/09/15 03/02/16 Rx Polyethylene Glycol 3350 [Miralax 17 gm PO QDAY #30 packet 03/04/16 Unknown Rx 3350] Hydrocortisone 28.4 gm TP BID #1 cream..g. 07/23/16 Unknown Rx Hydroxyzine HCl 25 mg PO BID PRN #25 tablet 07/23/16 Unknown Rx Lactulose [Cephulac] 20 gm PO QDAY PRN #90 ml 10/27/16 Unknown Rx Ciprofloxacin HCl [Ciprofloxacin 500 mg PO Q12HR #20 tab 03/13/17 Unknown Rx TAB] Famotidine [Pepcid] 20 mg PO BID #40 tablet 03/13/17 Unknown Rx HYDROcodone/APAP 5-325 [[place] 1 each PO Q6HR PRN #10 tablet 03/13/17 Unknown Rx 5/325] Ondansetron [Zofran Odt] 4 mg PO Q8HR #15 tab.rapdis 03/13/17 Unknown Rx metroNIDAZOLE [Flagyl] 500 mg PO Q12HR #20 tab 03/13/17 Unknown Rx Ciprofloxacin HCl [Ciprofloxacin 250 mg PO BID #10 tablet 03/16/17 Unknown Rx TAB] Triamcinolone 0.5% [Kenalog 0.5% 1 applic TP TID #1 tube 03/16/17 Unknown Rx CREAM] Allergies Allergy/AdvReac Type Severity Reaction Status Date / Time Penicillins Allergy Unknown Verified 07/23/16 13:34 ED Review of Systems ROS: Stated complaint: ALTERED MENTAL STATUS Other details as noted in HPI Comment: Unobtainable due to pts medical conditions ED Past Medical Hx - Past Medical History Previous Medical History?: Yes Hx Hypertension: Yes Hx CVA: Yes Hx Congestive Heart Failure: Yes Hx Diabetes: Yes Hx GERD: Yes Hx of Cancer: Yes (pancreatitic) Hx Arthritis: Yes Hx Asthma: Yes Hx COPD: Yes Hx Dementia: Yes Additional medical history: TIA. HIGH CHOLESTEROL - Surgical History Past Surgical History?: Yes Hx Cholecystectomy: Yes Hx Appendectomy: Yes Additional Surgical History: hysterectomy - Social History Smoking Status: Never Smoker Substance Use Type: None - Medications Home Medications: Home Medications Medication Instructions Recorded Confirmed Last Taken Type Montelukast [Singulair] 10 mg PO DAILY 06/20/13 03/13/17 03/02/16 History Atorvastatin Calcium [Lipitor] 20 mg PO QHS 09/13/15 03/13/17 03/02/16 History Cholecalciferol Vit D3 [Vitamin D3] 1,000 unit PO QDAY 09/13/15 03/13/17 History Omeprazole 40 mg PO DAILY 09/13/15 03/13/17 03/02/16 History Spironolactone [Aldactone] 25 mg PO DAILY 09/13/15 03/13/17 03/02/16 History Donepezil HCl [Donepezil HCl Odt] 5 mg PO QDAY 12/08/15 03/13/17 03/02/16 History Furosemide [Lasix TAB] 40 mg PO QDAY 12/08/15 03/13/17 03/02/16 History Simvastatin [Zocor TAB] 40 mg PO QHS 12/08/15 03/13/17 03/02/16 History Sitagliptin Phosphate [Januvia] 50 mg PO QDAY 12/08/15 03/13/17 03/02/16 History Lisinopril [Zestril TAB] 20 mg PO BID #60 tablet 12/09/15 03/13/17 03/02/16 Rx Metoprolol [Lopressor TAB] 100 mg PO BID tablet 12/09/15 03/13/17 03/02/16 Rx hydrALAZINE [Apresoline TAB] 25 mg PO Q8HR #90 tab 12/09/15 03/13/17 03/02/16 Rx Aspirin [Aspirin BABY CHEW TAB] 81 mg PO QDAY 03/03/16 03/13/17 03/03/16 History Polyethylene Glycol 3350 [Miralax 17 gm PO QDAY #30 packet 03/04/16 03/13/17 Unknown Rx 3350] Hydrocortisone 28.4 gm TP BID #1 cream..g. 07/23/16 03/13/17 Unknown Rx Hydroxyzine HCl 25 mg PO BID PRN #25 tablet 07/23/16 03/13/17 Unknown Rx Lactulose [Cephulac] 20 gm PO QDAY PRN #90 ml 10/27/16 03/13/17 Unknown Rx Ciprofloxacin HCl [Ciprofloxacin 500 mg PO Q12HR #20 tab 03/13/17 Unknown Rx TAB] Famotidine [Pepcid] 20 mg PO BID #40 tablet 03/13/17 Unknown Rx HYDROcodone/APAP 5-325 [[place] 1 each PO Q6HR PRN #10 tablet 03/13/17 Unknown Rx 5/325] Ondansetron [Zofran Odt] 4 mg PO Q8HR #15 tab.rapdis 03/13/17 Unknown Rx metroNIDAZOLE [Flagyl] 500 mg PO Q12HR #20 tab 03/13/17 Unknown Rx Ciprofloxacin HCl [Ciprofloxacin 250 mg PO BID #10 tablet 03/16/17 Unknown Rx TAB] Triamcinolone 0.5% [Kenalog 0.5% 1 applic TP TID #1 tube 03/16/17 Unknown Rx CREAM] ED Physical Exam - General Limitations: Altered Mental Status General appearance: alert, in no apparent distress - Head Head exam: Present: atraumatic, normocephalic - Eye Eye exam: Present: normal appearance - ENT ENT exam: Present: mucous membranes dry - Neck Neck exam: Present: normal inspection - Respiratory Respiratory exam: Present: normal lung sounds bilaterally. Absent: respiratory distress - Cardiovascular Cardiovascular Exam: Present: regular rate, normal rhythm. Absent: systolic murmur, diastolic murmur, rubs, gallop - GI/Abdominal GI/Abdominal exam: Present: soft, tenderness (bilateral lower quadrant tenderness to palpation. Patient grimaces with the palpation), normal bowel sounds - Extremities Exam Extremities exam: Present: normal inspection - Back Exam Back exam: Present: normal inspection - Neurological Exam Neurological exam: Present: alert, altered (pt a&o2) - Skin Skin exam: Present: warm, dry, intact, normal color. Absent: rash ED Course Vital Signs 03/14/18 03/14/18 03/14/18 15:50 15:59 16:00 Temperature 99.7 F H Pulse Rate 127 H 116 H Respiratory 23 18 Rate Blood Pressure 99/67 99/67 116/65 O2 Sat by Pulse 99 Oximetry 03/14/18 03/14/18 03/14/18 16:10 16:20 16:30 Temperature Pulse Rate 111 H 109 H 112 H Respiratory 20 18 12 Rate Blood Pressure 99/67 125/64 125/69 O2 Sat by Pulse 97 Oximetry 03/14/18 03/14/18 03/14/18 16:40 16:50 17:00 Temperature Pulse Rate 106 H 102 H 99 H Respiratory 19 16 15 Rate Blood Pressure 125/64 121/65 122/67 O2 Sat by Pulse 99 100 100 Oximetry 03/14/18 03/14/18 03/14/18 17:10 17:20 17:53 Temperature Pulse Rate 97 H 97 H 95 H Respiratory 12 14 17 Rate Blood Pressure 122/67 131/73 131/73 O2 Sat by Pulse 100 100 Oximetry 03/14/18 18:00 Temperature Pulse Rate 97 H Respiratory 15 Rate Blood Pressure 131/69 O2 Sat by Pulse 98 Oximetry - Reevaluation(s) Reevaluation #1: Patient hypotensive . We'll treat accordingly and change when necessary. 03/14/18 16:00 Reevaluation #2: Patient family at bedside. Family stated the patient went unresponsive for approximately 1 minute. Family denies seizure activity. Family states that her memory has been getting worse over the past 4 months. Family states she is currently at baseline. 03/14/18 17:09 Reevaluation #3: consulted for admission to the hospital service. dr Covarrubias to assume care. . Discussed case fully with Dr. Covarrubias. Discussed case with family. Family agrees to plan of care and admission. 03/14/18 19:18 - Lab Data Result diagrams: 03/14/18 16:13 03/14/18 18:09 Lab Results 03/14/18 03/14/18 03/14/18 Range/Units 16:13 16:13 16:13 WBC 11.0 (4.5-11.0) K/mm3 RBC 2.98 L (3.65-5.03) M/mm3 Hgb 9.2 L (10.1-14.3) gm/dl Hct 29.4 L (30.3-42.9) % MCV 99 H (79-97) fl MCH 31 (28-32) pg MCHC 31 (30-34) % RDW 18.5 H (13.2-15.2) % Plt Count 396 (140-440) K/mm3 Add Manual Diff Complete Total Counted 100 Seg Neuts % (Manual) 77.0 H (40.0-70.0) % Band Neutrophils % 9.0 % Lymphocytes % (Manual) 11.0 L (13.4-35.0) % Reactive Lymphs % (Man) 0 % Monocytes % (Manual) 3.0 (0.0-7.3) % Eosinophils % (Manual) 0 (0.0-4.3) % Basophils % (Manual) 0 (0.0-1.8) % Metamyelocytes % 0 % Myelocytes % 0 % Promyelocytes % 0 % Blast Cells % 0 % Nucleated RBC % Not Reportable Seg Neutrophils # Man 8.5 H (1.8-7.7) K/mm3 Band Neutrophils # 1.0 K/mm3 Lymphocytes # (Manual) 1.2 (1.2-5.4) K/mm3 Abs React Lymphs (Man) 0.0 K/mm3 Monocytes # (Manual) 0.3 (0.0-0.8) K/mm3 Eosinophils # (Manual) 0.0 (0.0-0.4) K/mm3 Basophils # (Manual) 0.0 (0.0-0.1) K/mm3 Metamyelocytes # 0.0 K/mm3 Myelocytes # 0.0 K/mm3 Promyelocytes # 0.0 K/mm3 Blast Cells # 0.0 K/mm3 WBC Morphology Not Reportable Hypersegmented Neuts Not Reportable Hyposegmented Neuts Not Reportable Hypogranular Neuts Not Reportable Smudge Cells Not Reportable Toxic Granulation Not Reportable Toxic Vacuolation Not Reportable Dohle Bodies Not Reportable Pelger-Huet Anomaly Not Reportable Melecio Rods Not Reportable Platelet Estimate Consistent w auto Clumped Platelets Not Reportable Plt Clumps, EDTA Not Reportable Large Platelets Not Reportable Giant Platelets Not Reportable Platelet Satelliting Not Reportable Plt Morphology Comment Not Reportable RBC Morphology Not Reportable Dimorphic RBCs Not Reportable Polychromasia Few Hypochromasia 2+ Poikilocytosis 1+ Anisocytosis 2+ Microcytosis Not Reportable Macrocytosis Not Reportable Spherocytes Not Reportable Pappenheimer Bodies Not Reportable Sickle Cells Not Reportable Target Cells Few Tear Drop Cells Not Reportable Ovalocytes Not Reportable Stomatocytes 1+ Helmet Cells Not Reportable Alvar[place] Bodies Not Reportable [place] Rings Not Reportable Randlett Cells Not Reportable Bite Cells Not Reportable Crenated Cell Not Reportable Elliptocytes Few Acanthocytes (Spur) Not Reportable Rouleaux Not Reportable Hemoglobin C Crystals Not Reportable Schistocytes Not Reportable Malaria parasites Not Reportable Jose Antonio Bodies Not Reportable Hem Pathologist Commnt No PT 18.0 H (12.2-14.9) Sec. INR 1.40 H (0.87-1.13) VBG pH (7.320-7.420) Sodium 134 L (137-145) mmol/L Potassium 3.6 (3.6-5.0) mmol/L Chloride 95.2 L (98-107) mmol/L Carbon Dioxide 16 L (22-30) mmol/L Anion Gap 26 mmol/L BUN 19 H (7-17) mg/dL Creatinine 0.6 L (0.7-1.2) mg/dL Estimated GFR > 60 ml/min BUN/Creatinine Ratio 32 % Glucose 214 H (65-100) mg/dL Lactic Acid (0.7-2.0) mmol/L Calcium 10.0 (8.4-10.2) mg/dL Total Bilirubin 16.00 H (0.1-1.2) mg/dL AST 229 H (5-40) units/L ALT 188 H (7-56) units/L Alkaline Phosphatase 1362 H (35-129) units/L Total Protein 6.5 (6.3-8.2) g/dL Albumin 2.5 L (3.9-5) g/dL Albumin/Globulin Ratio 0.6 % Urine Color (Yellow) Urine Turbidity (Clear) Urine pH (5.0-7.0) Ur Specific [place] (1.003-1.030) Urine Protein (Negative) mg/dL Urine Glucose (UA) (Negative) mg/dL Urine Ketones (Negative) mg/dL Urine Blood (Negative) Urine Nitrite (Negative) Urine Bilirubin (Negative) Urine Ictotest (Negative) Urine Urobilinogen (<2.0) mg/dL Ur Leukocyte Esterase (Negative) Urine WBC (Auto) (0.0-6.0) /HPF Urine RBC (Auto) (0.0-6.0) /HPF Urine Bacteria (Auto) (Negative) /HPF Urine Mucus /HPF 03/14/18 03/14/18 03/14/18 Range/Units 16:13 16:13 16:43 WBC (4.5-11.0) K/mm3 RBC (3.65-5.03) M/mm3 Hgb (10.1-14.3) gm/dl Hct (30.3-42.9) % MCV (79-97) fl MCH (28-32) pg MCHC (30-34) % RDW (13.2-15.2) % Plt Count (140-440) K/mm3 Add Manual Diff Total Counted Seg Neuts % (Manual) (40.0-70.0) % Band Neutrophils % % Lymphocytes % (Manual) (13.4-35.0) % Reactive Lymphs % (Man) % Monocytes % (Manual) (0.0-7.3) % Eosinophils % (Manual) (0.0-4.3) % Basophils % (Manual) (0.0-1.8) % Metamyelocytes % % Myelocytes % % Promyelocytes % % Blast Cells % % Nucleated RBC % Seg Neutrophils # Man (1.8-7.7) K/mm3 Band Neutrophils # K/mm3 Lymphocytes # (Manual) (1.2-5.4) K/mm3 Abs React Lymphs (Man) K/mm3 Monocytes # (Manual) (0.0-0.8) K/mm3 Eosinophils # (Manual) (0.0-0.4) K/mm3 Basophils # (Manual) (0.0-0.1) K/mm3 Metamyelocytes # K/mm3 Myelocytes # K/mm3 Promyelocytes # K/mm3 Blast Cells # K/mm3 WBC Morphology Hypersegmented Neuts Hyposegmented Neuts Hypogranular Neuts Smudge Cells Toxic Granulation Toxic Vacuolation Dohle Bodies Pelger-Huet Anomaly Melecio Rods Platelet Estimate Clumped Platelets Plt Clumps, EDTA Large Platelets Giant Platelets Platelet Satelliting Plt Morphology Comment RBC Morphology Dimorphic RBCs Polychromasia Hypochromasia Poikilocytosis Anisocytosis Microcytosis Macrocytosis Spherocytes Pappenheimer Bodies Sickle Cells Target Cells Tear Drop Cells Ovalocytes Stomatocytes Helmet Cells Alvarado-[place]gona Bodies [place] Rings Randlett Cells Bite Cells Crenated Cell Elliptocytes Acanthocytes (Spur) Rouleaux Hemoglobin C Crystals Schistocytes Malaria parasites Jose Antonio Bodies Hem Pathologist Commnt PT (12.2-14.9) Sec. INR (0.87-1.13) VBG pH 7.280 L (7.320-7.420) Sodium (137-145) mmol/L Potassium (3.6-5.0) mmol/L Chloride (98-107) mmol/L Carbon Dioxide (22-30) mmol/L Anion Gap mmol/L BUN (7-17) mg/dL Creatinine (0.7-1.2) mg/dL Estimated GFR ml/min BUN/Creatinine Ratio % Glucose (65-100) mg/dL Lactic Acid 7.70 H* (0.7-2.0) mmol/L Calcium (8.4-10.2) mg/dL Total Bilirubin (0.1-1.2) mg/dL AST (5-40) units/L ALT (7-56) units/L Alkaline Phosphatase (35-129) units/L Total Protein (6.3-8.2) g/dL Albumin (3.9-5) g/dL Albumin/Globulin Ratio % Urine Color Red (Yellow) Urine Turbidity Clear (Clear) Urine pH 6.0 (5.0-7.0) Ur Specific [place] 1.023 (1.003-1.030) Urine Protein 100 mg/dl (Negative) mg/dL Urine Glucose (UA) Neg (Negative) mg/dL Urine Ketones Neg (Negative) mg/dL Urine Blood Neg (Negative) Urine Nitrite Neg (Negative) Urine Bilirubin Mod (Negative) Urine Ictotest Positive (Negative) Urine Urobilinogen 4.0 (<2.0) mg/dL Ur Leukocyte Esterase Sm (Negative) Urine WBC (Auto) 116.0 H (0.0-6.0) /HPF Urine RBC (Auto) 0.0 (0.0-6.0) /HPF Urine Bacteria (Auto) 4+ (Negative) /HPF Urine Mucus 3+ /HPF //18 Range/Units 18:09 WBC (4.5-11.0) K/mm3 RBC (3.65-5.03) M/mm3 Hgb (10.1-14.3) gm/dl Hct (30.3-42.9) % MCV (79-97) fl MCH (28-32) pg MCHC (30-34) % RDW (13.2-15.2) % Plt Count (140-440) K/mm3 Add Manual Diff Total Counted Seg Neuts % (Manual) (40.0-70.0) % Band Neutrophils % % Lymphocytes % (Manual) (13.4-35.0) % Reactive Lymphs % (Man) % Monocytes % (Manual) (0.0-7.3) % Eosinophils % (Manual) (0.0-4.3) % Basophils % (Manual) (0.0-1.8) % Metamyelocytes % % Myelocytes % % Promyelocytes % % Blast Cells % % Nucleated RBC % Seg Neutrophils # Man (1.8-7.7) K/mm3 Band Neutrophils # K/mm3 Lymphocytes # (Manual) (1.2-5.4) K/mm3 Abs React Lymphs (Man) K/mm3 Monocytes # (Manual) (0.0-0.8) K/mm3 Eosinophils # (Manual) (0.0-0.4) K/mm3 Basophils # (Manual) (0.0-0.1) K/mm3 Metamyelocytes # K/mm3 Myelocytes # K/mm3 Promyelocytes # K/mm3 Blast Cells # K/mm3 WBC Morphology Hypersegmented Neuts Hyposegmented Neuts Hypogranular Neuts Smudge Cells Toxic Granulation Toxic Vacuolation Dohle Bodies Pelger-Huet Anomaly Melecio Rods Platelet Estimate Clumped Platelets Plt Clumps, EDTA Large Platelets Giant Platelets Platelet Satelliting Plt Morphology Comment RBC Morphology Dimorphic RBCs Polychromasia Hypochromasia Poikilocytosis Anisocytosis Microcytosis Macrocytosis Spherocytes Pappenheimer Bodies Sickle Cells Target Cells Tear Drop Cells Ovalocytes Stomatocytes Helmet Cells Alvarado-Algona Bodies [place] Rings Jeevan Cells Bite Cells Crenated Cell Elliptocytes Acanthocytes (Spur) Rouleaux Hemoglobin C Crystals Schistocytes Malaria parasites Jose Antonio Bodies Hem Pathologist Commnt PT (12.2-14.9) Sec. INR (0.87-1.13) VBG pH (7.320-7.420) Sodium 136 L (137-145) mmol/L Potassium 4.1 (3.6-5.0) mmol/L Chloride 94.8 L (98-107) mmol/L Carbon Dioxide 16 L (22-30) mmol/L Anion Gap 29 mmol/L BUN 20 H (7-17) mg/dL Creatinine 0.5 L (0.7-1.2) mg/dL Estimated GFR > 60 ml/min BUN/Creatinine Ratio 40 % Glucose 204 H (65-100) mg/dL Lactic Acid (0.7-2.0) mmol/L Calcium 9.8 (8.4-10.2) mg/dL Total Bilirubin (0.1-1.2) mg/dL AST (5-40) units/L ALT (7-56) units/L Alkaline Phosphatase (35-129) units/L Total Protein (6.3-8.2) g/dL Albumin (3.9-5) g/dL Albumin/Globulin Ratio % Urine Color (Yellow) Urine Turbidity (Clear) Urine pH (5.0-7.0) Ur Specific [place] (1.003-1.030) Urine Protein (Negative) mg/dL Urine Glucose (UA) (Negative) mg/dL Urine Ketones (Negative) mg/dL Urine Blood (Negative) Urine Nitrite (Negative) Urine Bilirubin (Negative) Urine Ictotest (Negative) Urine Urobilinogen (<2.0) mg/dL Ur Leukocyte Esterase (Negative) Urine WBC (Auto) (0.0-6.0) /HPF Urine RBC (Auto) (0.0-6.0) /HPF Urine Bacteria (Auto) (Negative) /HPF Urine Mucus /HPF - EKG Data -: EKG Interpreted by Pa EKG shows normal: sinus rhythm, intervals, QRS complexes, ST-T waves Rate: tachycardia - Radiology Data Radiology results: report reviewed CT positive for pancreatic mass. And DVT of the left common iliac vein. Chest x-ray negative. Head CT negative. - Medical Decision Making 77-year-old female who presents to emergency room with altered mental status. Patient found to have DVT, metabolic acidosis, extremity elevated lactic acid, pancreatic mass, pancreatic cancer, sepsis, and UTI. Patient to be admitted to the hospitalist service for further evaluation and treatment Critical Care Time: Yes Critical care attestation.: If time is entered above; I have spent that time in minutes in the direct care of this critically ill patient, excluding procedure time. Critical Care Time: 45 minutes spent with patient critical care time ED Disposition Clinical Impression: Metabolic acidosis, Abnormal LFTs, Elevated lactic acid level, Lactic acidosis , Tachycardia Hypotension Qualifiers: Hypotension type: unspecified hypotension type Qualified Code(s): I95.9 - Hypotension, unspecified Altered mental status Qualifiers: Altered mental status type: unspecified Qualified Code(s): R41.82 - Altered mental status, unspecified Abdominal pain Qualifiers: Abdominal location: lower abdomen, unspecified Qualified Code(s): R10.30 - Lower abdominal pain, unspecified Iliac DVT (deep venous thrombosis) Qualifiers: Chronicity: acute Laterality: left Qualified Code(s): I82.422 - Acute embolism and thrombosis of left iliac vein Sepsis Qualifiers: Sepsis type: sepsis due to unspecified organism Qualified Code(s): A41.9 - Sepsis, unspecified organism Urinary tract infection Qualifiers: Urinary tract infection type: acute cystitis Hematuria presence: with hematuria Qualified Code(s): N30.01 - Acute cystitis with hematuria Pancreatic cancer Qualifiers: Pancreatic malignancy location: unspecified Qualified Code(s): C25.9 - Malignant neoplasm of pancreas, unspecified Disposition: 09 OP ADMIT IP TO THIS HOSP Is pt being admited?: Yes Does the pt Need Aspirin: No Condition: Critical Time of Disposition: 19:26
[2018-03-14] MEDS ORDERED: NACL 0.9% 500 ML 500 ML IV ONE (16:07)
[2018-03-14 16:25] LABS: Hematocrit 29.4 % (30.3-42.9); Hemoglobin 9.2 gm/dl (10.1-14.3); Mean Corpuscular HGB Conc 31 % (30-34); Mean Corpuscular Hemoglobin 31 pg (28-32); Mean Corpuscular Volume 99 fl (79-97); Platelet Count 396 K/mm3 (140-440); Red Blood Count 2.98 M/mm3 (3.65-5.03); Red Cell Distribution Width 18.5 % (13.2-15.2)
[2018-03-14 16:40] LABS: Alanine Aminotransferase 188 units/L (7-56); Albumin 2.5 g/dL (3.9-5); BUN/Creatinine Ratio 32; Blood Urea Nitrogen 19 mg/dL (7-17); Hemolysis Index 0
[2018-03-14] MEDS ORDERED: NACL 0.9% 1000 ML 1,000 ML IV ONE (16:47)
[2018-03-14] MEDS ORDERED: LEVAQUIN 500MG/100ML 500 MG/100 ML BAG IV ONE (17:01)
[2018-03-14 17:13] LABS: INR 1.4 (0.87-1.13)
--- NOTE | 2018-03-14 17:22 | XRay Report ---
FINAL REPORT EXAM: XR CHEST 1V AP HISTORY: possible Sepsis TECHNIQUE: Single, portable chest x-ray. PRIORS: None. FINDINGS: Mild cardiomegaly. Lungs are normally expanded, with possible mild atelectatic change or scarring centrally. No significant vascular congestion, focal consolidation or apparent pneumothorax. Mild dextroconvex curvature of thoracic spine. IMPRESSION: 1. Cardiomegaly. 2. No acute consolidation.
[2018-03-14 17:24] LABS: Bacteria,Urine 4+ /HPF (Negative); Bilirubin,Urine MOD (Negative); Blood,Urine NEG (Negative); Color,Urine Red (Yellow); Mucus,Urine 3+ /HPF
[2018-03-14 17:35] LABS: Ictotest,Urine Positive (Negative)
[2018-03-14 17:39] LABS: Basophils % (Manual) 0 % (0.0-1.8); Eosinophils % (Manual) 0 % (0.0-4.3); Total Cells Counted 100
[2018-03-14 17:40] LABS: Anisocytosis 2+; Stomatocytes 1+
[2018-03-14 17:41] LABS: Hypochromasia 2+; Poikilocytosis 1+; Target Cells Few
[2018-03-14 17:42] LABS: Platelet Estimate Consistent w Auto
[2018-03-14] MEDS ORDERED: DILAUDID IV ONE (18:17)
[2018-03-14 18:30] LABS: BUN/Creatinine Ratio 40; Blood Urea Nitrogen 20 mg/dL (7-17); Calcium 9.8 mg/dL (8.4-10.2); Hemolysis Index 13
--- NOTE | 2018-03-14 18:32 | Cat Scan Report ---
FINAL REPORT EXAM: CT HEAD/BRAIN WO CON HISTORY: ams TECHNIQUE: Noncontrast CT axial images of the brain. PRIORS: None. FINDINGS: No parenchymal mass, mass effect, hemorrhage, midline shift or hydrocephalus. No evidence of acute cortical infarct. No abnormal, extra-axial fluid or air collection. Patchy low density in the periventricular and subcortical white matter is nonspecific, but may relate to chronic small vessel ischemic change. Probable old lacunar infarct changes in the bilateral basal ganglia. Diffuse volume loss. Osseous calvarium grossly intact. IMPRESSION: 1. No acute intracranial findings. 2. Chronic ischemic and atrophic changes.
--- NOTE | 2018-03-14 19:05 | Cat Scan Report ---
FINAL REPORT EXAM: CT ABDOMEN PELVIS W CON HISTORY: abd pain TECHNIQUE: Spiral CT scanning of the abdomen and pelvis after the uneventful administration of IV contrast. Multiplanar reformations. 100 mL Omnipaque IV. PRIORS: None. FINDINGS: Abdomen: Visualized lung bases show mild atelectatic change or scarring bilaterally. Mild cardiomegaly stable. Small-moderate hiatal hernia mildly increased. Gallbladder markedly distended without radiopaque gallstones. Marked intra and extrahepatic biliary duct dilatation new from comparison. Proximal common bile duct measures approximately 2 cm in maximal diameter. Remainder of liver grossly unremarkable. Spleen without significant abnormality. Large and heterogeneous soft tissue mass in vicinity of pancreatic head measuring approximately 4.4 x 4.2 cm in maximal cross-sectional diameter, with some internal gas locules, nonspecific. Diffuse obliteration of surrounding fat planes and indistinct margins with adjacent stomach and duodenum, which are displaced anterolaterally and demonstrates some bowel wall and fold thickening. Diffuse pancreatic duct dilatation measuring up to 8 mm in diameter. Ill-defined soft tissue stranding and infiltration, as well as diffuse and conglomerate soft tissue densities in the central mesentery, which extend caudally along the retroperitoneum to aortoiliac region compatible with extensive adenopathy. Low-density central components or cystic focus in right retrocrural space measuring up to 4 cm may represent more of same. Large, bilobed or possible septated cyst again noted in left kidney measuring up to 8 cm in cross-sectional diameter and 12 cm in craniocaudal dimension about same. Right kidney grossly unremarkable. Adrenal glands without significant abnormality. Pelvis: Bowel grossly unremarkable. Appendix within normal limits. Very small amount of nonspecific, free fluid in the pelvis. No discrete abscess. Diffuse aortoiliac calcification without aneurysmal dilatation. Expansile appearance and central filling defect in left common and external iliac and probable common femoral veins. Craft catheter balloon and some gas noted within the urinary bladder. Biomedical device projects over the left gluteal region, with lead(s) extending to the left presacral space. Axial skeleton grossly unremarkable. IMPRESSION: 1. Large, heterogeneous mass centered in pancreatic head, with extensive infiltration and kaia or conglomerate adenopathy in the central mesentery and extending caudally along the retroperitoneum, with considerable biliary and pancreatic duct dilatation, new in the interval. 2. Findings probably representing DVT in left common and external iliac and common femoral veins. 3. Gallbladder distention without apparent cholelithiasis. 4. Additional, nonemergent findings. Please see above for further details. Dr. Ruby discussed results with Dr. Cevallos on 14 March 2018 at approximately 1841 hours EST.
--- NOTE | 2018-03-14 19:37 | History and Physical Report ---
History of Present Illness Chief complaint: She is weak, and more confused History of present illness: 77 YO Female Hospice Patient with Pancreatic Cancer, CVA, HTN, COPD, Dementia, HLD, DM,GERD, OA, Bilateral DVT on on anticoagulation, Asthma presents to ED for evaluation. Pt is lethargic and unable to provide detained history. Pt family is at bedside and provides history. As per family, the patient has experienced worsening confusion over the past 3 days with worsening symptoms over the past 1 day. Pt also has decreased oral intake, and is currently unable to independently conduct activities of daily living. No reports of fever, chills , CP, Palpitations, NVD, syncope, trauma, or recent ill contacts. Pt seen and evaluated in ED and found to have UTI, as well as Acidosis, Obstructive jaundice secondary to Pancreatic cancer. Pt admitted to [facility] unit. Pt family counseled regarding poor prognosis. Pt family request admission for treatment of UTI. Pt family revoked hospice care at time of admission. Past History Past Medical History: cancer, hypertension Past Surgical History: appendectomy, cholecystectomy Social history: . denies: smoking, alcohol abuse, prescription drug abuse Family history: hypertension Medications and Allergies Allergies Allergy/AdvReac Type Severity Reaction Status Date / Time Penicillins Allergy Unknown Verified 07/23/16 13:34 Home Medications Medication Instructions Recorded Confirmed Last Taken Type Montelukast [Singulair] 10 mg PO DAILY 06/20/13 03/13/17 03/02/16 History Atorvastatin Calcium [Lipitor] 20 mg PO QHS 09/13/15 03/13/17 03/02/16 History Cholecalciferol Vit D3 [Vitamin D3] 1,000 unit PO QDAY 09/13/15 03/13/17 History Omeprazole 40 mg PO DAILY 09/13/15 03/13/17 03/02/16 History Spironolactone [Aldactone] 25 mg PO DAILY 09/13/15 03/13/17 03/02/16 History Donepezil HCl [Donepezil HCl Odt] 5 mg PO QDAY 12/08/15 03/13/17 03/02/16 History Furosemide [Lasix TAB] 40 mg PO QDAY 12/08/15 03/13/17 03/02/16 History Simvastatin [Zocor TAB] 40 mg PO QHS 0403/13/17 03/02/16 History Sitagliptin Phosphate [Januvia] 50 mg PO QDAY 12/08/15 03/13/17 03/02/16 History Lisinopril [Zestril TAB] 20 mg PO BID #60 tablet 12/09/15 03/13/17 03/02/16 Rx Metoprolol [Lopressor TAB] 100 mg PO BID tablet 12/09/15 03/13/17 03/02/16 Rx hydrALAZINE [Apresoline TAB] 25 mg PO Q8HR #90 tab 12/09/15 03/13/17 03/02/16 Rx Aspirin [Aspirin BABY CHEW TAB] 81 mg PO QDAY 03/03/16 03/13/17 03/03/16 History Polyethylene Glycol 3350 [Miralax 17 gm PO QDAY #30 packet 03/04/16 03/13/17 Unknown Rx 3350] Hydrocortisone 28.4 gm TP BID #1 cream..g. 07/23/16 03/13/17 Unknown Rx Hydroxyzine HCl 25 mg PO BID PRN #25 tablet 07/23/16 03/13/17 Unknown Rx Lactulose [Cephulac] 20 gm PO QDAY PRN #90 ml 10/27/16 03/13/17 Unknown Rx Ciprofloxacin HCl [Ciprofloxacin 500 mg PO Q12HR #20 tab 03/13/17 Unknown Rx TAB] Famotidine [Pepcid] 20 mg PO BID #40 tablet 03/13/17 Unknown Rx HYDROcodone/APAP 5-325 [[place] 1 each PO Q6HR PRN #10 tablet 03/13/17 Unknown Rx 5/325] Ondansetron [Zofran Odt] 4 mg PO Q8HR #15 tab.rapdis 03/13/17 Unknown Rx metroNIDAZOLE [Flagyl] 500 mg PO Q12HR #20 tab 03/13/17 Unknown Rx Ciprofloxacin HCl [Ciprofloxacin 250 mg PO BID #10 tablet 03/16/17 Unknown Rx TAB] Triamcinolone 0.5% [Kenalog 0.5% 1 applic TP TID #1 tube 03/16/17 Unknown Rx CREAM] Review of Systems ROS unobtainable: due to mental status Exam - Constitutional Vitals: Temp Pulse Resp BP Pulse Ox 99.7 F H 97 H 15 131/69 98 03/14/18 15:59 03/14/18 18:00 03/14/18 18:00 03/14/18 18:00 03/14/18 18:00 General appearance: Present: mild distress, cachectic - EENT Eyes: Present: PERRL, miosis - Neck Neck: Present: supple, normal ROM - Respiratory Respiratory effort: labored Respiratory: bilateral: diminished - Cardiovascular Heart Sounds: Present: S1 & S2. Absent: rub, click - Extremities Extremities: pulses symmetrical, No edema Peripheral Pulses: within normal limits - Abdominal General gastrointestinal: Present: soft, non-tender, non-distended, normal bowel sounds Localized gastrointestinal: tender: suprapubic Female genitourinary: Present: normal - Integumentary Integumentary: Present: clear, dry, clammy, decreased turgor - Musculoskeletal Musculoskeletal: generalized weakness - Psychiatric Psychiatric: no intact judgment & insight, no memory intact - Neurologic Neurologic: moves all extremities, no gait normal Results - Labs CBC & Chem 7: 03/14/18 16:13 03/14/18 18:09 Labs: Abnormal lab results 03/14/18 03/14/18 03/14/18 Range/Units 16:13 16:13 16:13 RBC 2.98 L (3.65-5.03) M/mm3 Hgb 9.2 L (10.1-14.3) gm/dl Hct 29.4 L (30.3-42.9) % MCV 99 H (79-97) fl RDW 18.5 H (13.2-15.2) % Seg Neuts % (Manual) 77.0 H (40.0-70.0) % Lymphocytes % (Manual) 11.0 L (13.4-35.0) % Seg Neutrophils # Man 8.5 H (1.8-7.7) K/mm3 PT 18.0 H (12.2-14.9) Sec. INR 1.40 H (0.87-1.13) VBG pH (7.320-7.420) Sodium 134 L (137-145) mmol/L Chloride 95.2 L (98-107) mmol/L Carbon Dioxide 16 L (22-30) mmol/L BUN 19 H (7-17) mg/dL Creatinine 0.6 L (0.7-1.2) mg/dL Glucose 214 H (65-100) mg/dL Lactic Acid (0.7-2.0) mmol/L Total Bilirubin 16.00 H (0.1-1.2) mg/dL AST 229 H (5-40) units/L ALT 188 H (7-56) units/L Alkaline Phosphatase 1362 H (35-129) units/L Albumin 2.5 L (3.9-5) g/dL Urine WBC (Auto) (0.0-6.0) /HPF 03/14/18 03/14/18 03/14/18 Range/Units 16:13 16:13 16:43 RBC (3.65-5.03) M/mm3 Hgb (10.1-14.3) gm/dl Hct (30.3-42.9) % MCV (79-97) fl RDW (13.2-15.2) % Seg Neuts % (Manual) (40.0-70.0) % Lymphocytes % (Manual) (13.4-35.0) % Seg Neutrophils # Man (1.8-7.7) K/mm3 PT (12.2-14.9) Sec. INR (0.87-1.13) VBG pH 7.280 L (7.320-7.420) Sodium (137-145) mmol/L Chloride (98-107) mmol/L Carbon Dioxide (22-30) mmol/L BUN (7-17) mg/dL Creatinine (0.7-1.2) mg/dL Glucose (65-100) mg/dL Lactic Acid 7.70 H* (0.7-2.0) mmol/L Total Bilirubin (0.1-1.2) mg/dL AST (5-40) units/L ALT (7-56) units/L Alkaline Phosphatase (35-129) units/L Albumin (3.9-5) g/dL Urine WBC (Auto) 116.0 H (0.0-6.0) /HPF 03/14/18 Range/Units 18:09 RBC (3.65-5.03) M/mm3 Hgb (10.1-14.3) gm/dl Hct (30.3-42.9) % MCV (79-97) fl RDW (13.2-15.2) % Seg Neuts % (Manual) (40.0-70.0) % Lymphocytes % (Manual) (13.4-35.0) % Seg Neutrophils # Man (1.8-7.7) K/mm3 PT (12.2-14.9) Sec. INR (0.87-1.13) VBG pH (7.320-7.420) Sodium 136 L (137-145) mmol/L Chloride 94.8 L (98-107) mmol/L Carbon Dioxide 16 L (22-30) mmol/L BUN 20 H (7-17) mg/dL Creatinine 0.5 L (0.7-1.2) mg/dL Glucose 204 H (65-100) mg/dL Lactic Acid (0.7-2.0) mmol/L Total Bilirubin (0.1-1.2) mg/dL AST (5-40) units/L ALT (7-56) units/L Alkaline Phosphatase (35-129) units/L Albumin (3.9-5) g/dL Urine WBC (Auto) (0.0-6.0) /HPF Assessment and Plan - Patient Problems (1) UTI (urinary tract infection) Current Visit: Yes Status: Acute Qualifiers: Encounter type: initial encounter Plan to address problem: IN antibiotics, IVF resuscitation, monitor uop q shif,t urinalysis, supportive care. (2) Iliac DVT (deep venous thrombosis) Current Visit: Yes Status: Chronic Qualifiers: Chronicity: acute Laterality: left Qualified Code(s): I82.422 - Acute embolism and thrombosis of left iliac vein Plan to address problem: CHronic DVT Not on therapeutic anticoagulation, supportive care, (3) Metabolic acidosis Current Visit: Yes Status: Acute Plan to address problem: IVF resuscitation, monitor uop shift, repeat bmp (4) Pancreatic cancer Current Visit: Yes Status: Acute Qualifiers: Pancreatic malignancy location: unspecified Qualified Code(s): C25.9 - Malignant neoplasm of pancreas, unspecified Plan to address problem: Pain control. Pt was on hospice. Pt family revoked hospice at admission. Pain control, supportive care, Pt family plan to restart hospice care at discharge. 45 minutes extra time spent counseling family regarding care plan. Pt family acknowledge understanding and agreement with care plan. (5) Obstructive jaundice due to malignant neoplasm Current Visit: Yes Status: Acute Plan to address problem: Pain control, supportive care. (6) DVT prophylaxis Current Visit: No Status: Acute
[2018-03-14] MEDS ORDERED: TYLENOL PO PRN (19:54)
[2018-03-14] MEDS ORDERED: ZOFRAN IV PRN (19:54)
[2018-03-14] MEDS ORDERED: PROVENTIL IH PRN (19:54)
[2018-03-14] MEDS ORDERED: SODIUM CHLORIDE FLUSH SYRINGE 10 ML IV PRN (19:54)
[2018-03-14] MEDS: SODIUM CHLORIDE FLUSH SYRINGE 10 ML IV SCH (22:56)
[2018-03-14] MEDS: PEPCID IV SCH (22:56)
[2018-03-14] MEDS: DILAUDID IV PRN (23:08)
[2018-03-15] MEDS ORDERED: NACL 0.45% 1,000 ML IV SCH (07:00)
[2018-03-15] MEDS: LEVAQUIN 500MG/100ML 500 MG/100 ML BAG IV SCH (09:02)
[2018-03-15] MEDS: PEPCID IV SCH ×2 (09:03→22:15)
[2018-03-15] MEDS: SODIUM CHLORIDE FLUSH SYRINGE 10 ML IV SCH ×2 (09:04→22:20)
--- NOTE | 2018-03-15 09:31 | Progress Note ---
Subjective Date of service: 03/15/18 Principal diagnosis: Pancreatic cancer Objective - Constitutional Vitals: Vital Signs - 12hr 03/14/18 03/14/18 03/15/18 21:27 22:00 02:33 Temperature 97.6 F 97.1 F L Pulse Rate 62 Respiratory 18 18 Rate Blood Pressure 151/85 129/61 O2 Sat by Pulse Oximetry 03/15/18 04:31 Temperature Pulse Rate Respiratory Rate Blood Pressure O2 Sat by Pulse 98 Oximetry - Labs CBC & Chem 7: 03/14/18 16:13 03/15/18 09:05 Labs: Abnormal lab results 03/14/18 03/14/18 03/14/18 Range/Units 16:03 16:13 16:13 RBC 2.98 L (3.65-5.03) M/mm3 Hgb 9.2 L (10.1-14.3) gm/dl Hct 29.4 L (30.3-42.9) % MCV 99 H (79-97) fl RDW 18.5 H (13.2-15.2) % Seg Neuts % (Manual) 77.0 H (40.0-70.0) % Lymphocytes % (Manual) 11.0 L (13.4-35.0) % Seg Neutrophils # Man 8.5 H (1.8-7.7) K/mm3 PT 18.0 H (12.2-14.9) Sec. INR 1.40 H (0.87-1.13) VBG pH (7.320-7.420) Sodium (137-145) mmol/L Chloride (98-107) mmol/L Carbon Dioxide (22-30) mmol/L BUN (7-17) mg/dL Creatinine (0.7-1.2) mg/dL Glucose (65-100) mg/dL POC Glucose 250 H (70-105) Lactic Acid (0.7-2.0) mmol/L Total Bilirubin (0.1-1.2) mg/dL AST (5-40) units/L ALT (7-56) units/L Alkaline Phosphatase (35-129) units/L Albumin (3.9-5) g/dL Urine WBC (Auto) (0.0-6.0) /HPF 03/14/18 03/14/18 03/14/18 Range/Units 16:13 16:13 16:13 RBC (3.65-5.03) M/mm3 Hgb (10.1-14.3) gm/dl Hct (30.3-42.9) % MCV (79-97) fl RDW (13.2-15.2) % Seg Neuts % (Manual) (40.0-70.0) % Lymphocytes % (Manual) (13.4-35.0) % Seg Neutrophils # Man (1.8-7.7) K/mm3 PT (12.2-14.9) Sec. INR (0.87-1.13) VBG pH 7.280 L (7.320-7.420) Sodium 134 L (137-145) mmol/L Chloride 95.2 L (98-107) mmol/L Carbon Dioxide 16 L (22-30) mmol/L BUN 19 H (7-17) mg/dL Creatinine 0.6 L (0.7-1.2) mg/dL Glucose 214 H (65-100) mg/dL POC Glucose (70-105) Lactic Acid 7.70 H* (0.7-2.0) mmol/L Total Bilirubin 16.00 H (0.1-1.2) mg/dL AST 229 H (5-40) units/L ALT 188 H (7-56) units/L Alkaline Phosphatase 1362 H (35-129) units/L Albumin 2.5 L (3.9-5) g/dL Urine WBC (Auto) (0.0-6.0) /HPF 03/14/18 03/14/18 03/14/18 Range/Units 16:43 18:09 21:41 RBC (3.65-5.03) M/mm3 Hgb (10.1-14.3) gm/dl Hct (30.3-42.9) % MCV (79-97) fl RDW (13.2-15.2) % Seg Neuts % (Manual) (40.0-70.0) % Lymphocytes % (Manual) (13.4-35.0) % Seg Neutrophils # Man (1.8-7.7) K/mm3 PT (12.2-14.9) Sec. INR (0.87-1.13) VBG pH (7.320-7.420) Sodium 136 L (137-145) mmol/L Chloride 94.8 L (98-107) mmol/L Carbon Dioxide 16 L (22-30) mmol/L BUN 20 H (7-17) mg/dL Creatinine 0.5 L (0.7-1.2) mg/dL Glucose 204 H (65-100) mg/dL POC Glucose (70-105) Lactic Acid 2.30 H* (0.7-2.0) mmol/L Total Bilirubin (0.1-1.2) mg/dL AST (5-40) units/L ALT (7-56) units/L Alkaline Phosphatase (35-129) units/L Albumin (3.9-5) g/dL Urine WBC (Auto) 116.0 H (0.0-6.0) /HPF
[2018-03-15 09:36] LABS: Albumin 2.3 g/dL (3.9-5); BUN/Creatinine Ratio 75; Blood Urea Nitrogen 15 mg/dL (7-17); Calcium 8.9 mg/dL (8.4-10.2); Hemolysis Index 94
[2018-03-15 09:48] LABS: Alanine Aminotransferase 173 units/L (7-56)
--- NOTE | 2018-03-15 13:23 | Progress Note ---
Assessment and Plan Assessment and plan: 77-year-old female patient with history of pancreatic cancer, under hospice care Was admitted through emergency room with altered level of consciousness, sepsis Being treated symptomatically, empiric antibiotics for UTI and supportive care, full CODE STATUS --Metabolic encephalopathy; multifactorial, present on admission Patient is more alert and awake this morning, supportive care Rule out sepsis, possible UTI --Urinary tract infection; Empiric antibiotics, follow cultures, IV fluids, supportive care --History of pancreatic cancer; On hospice care, continue current management and supportive care Possible discharge home with hospice when medically stable --Obstructive jaundice; secondary to pancreatic cancer Supportive care and continue current management --Left iliac DVT; on CT abdomen; not on anticoagulation Patient is coagulopathic secondary to liver and pancreatic disease Supportive care, --Dementia ;resume home medications; Supportive care --Hypertension; controlled Continue current antihypertensives and when necessary medications --Dyslipidemia; no statins in view of transaminitis --Metabolic acidosis; Probably secondary to dehydration, aggressive IV therapy, closely monitor --Severe malnutrition/hypoalbuminemia; supportive care and nutrition consult as needed, nutrition supplements --DVT prophylaxis; SCD --CODE STATUS full code Patient is critically ill with multiple medical problems advanced age Recommend DO NOT RESUSCITATE and comfort care Please check with family when they're available --DC planning per case management History Interval history: Patient seen and examined medical records reviewed Very frail elderly female patient alert and awake Denies any chest pain or shortness of breath Vital signs reviewed No new events reported by the nursing Hospitalist Physical - Constitutional Vitals: Temp Pulse Resp BP Pulse Ox 97.8 F 63 20 123/58 95 03/15/18 07:25 03/15/18 07:25 03/15/18 07:25 03/15/18 07:25 03/15/18 07:25 General appearance: Present: mild distress, cachectic, disheveled - EENT Eyes: Present: PERRL, EOM intact, scleral icterus - Neck Neck: Present: supple, normal ROM - Respiratory Respiratory effort: normal Respiratory: bilateral: diminished, rhonchi, negative: rales, wheezing - Cardiovascular Rhythm: regular Heart Sounds: Present: S1 & S2 - Extremities Extremities: no ischemia, pulses intact - Abdominal General gastrointestinal: soft, non-tender, non-distended, normal bowel sounds - Integumentary Integumentary: Present: clear, warm, jaundice - Psychiatric Psychiatric: appropriate mood/affect, cooperative, other (confused at times) - Neurologic Neurologic: moves all extremities Results - Labs CBC & Chem 7: 03/14/18 16:13 03/15/18 09:05 Labs: Laboratory Last Values WBC 11.0 K/mm3 (4.5-11.0) 03/14/18 16:13 RBC 2.98 M/mm3 (3.65-5.03) L 03/14/18 16:13 Hgb 9.2 gm/dl (10.1-14.3) L 03/14/18 16:13 Hct 29.4 % (30.3-42.9) L 03/14/18 16:13 MCV 99 fl (79-97) H 03/14/18 16:13 MCH 31 pg (28-32) 03/14/18 16:13 MCHC 31 % (30-34) 03/14/18 16:13 RDW 18.5 % (13.2-15.2) H 03/14/18 16:13 Plt Count 396 K/mm3 (140-440) 03/14/18 16:13 Add Manual Diff Complete 03/14/18 16:13 Total Counted 100 03/14/18 16:13 Seg Neuts % (Manual) 77.0 % (40.0-70.0) H 03/14/18 16:13 Band Neutrophils % 9.0 % 03/14/18 16:13 Lymphocytes % (Manual) 11.0 % (13.4-35.0) L 03/14/18 16:13 Reactive Lymphs % (Man) 0 % 03/14/18 16:13 Monocytes % (Manual) 3.0 % (0.0-7.3) 03/14/18 16:13 Eosinophils % (Manual) 0 % (0.0-4.3) 03/14/18 16:13 Basophils % (Manual) 0 % (0.0-1.8) 03/14/18 16:13 Metamyelocytes % 0 % 03/14/18 16:13 Myelocytes % 0 % 03/14/18 16:13 Promyelocytes % 0 % 03/14/18 16:13 Blast Cells % 0 % 03/14/18 16:13 Nucleated RBC % Not Reportable 03/14/18 16:13 Seg Neutrophils # Man 8.5 K/mm3 (1.8-7.7) H 03/14/18 16:13 Band Neutrophils # 1.0 K/mm3 03/14/18 16:13 Lymphocytes # (Manual) 1.2 K/mm3 (1.2-5.4) 03/14/18 16:13 Abs React Lymphs (Man) 0.0 K/mm3 03/14/18 16:13 Monocytes # (Manual) 0.3 K/mm3 (0.0-0.8) 03/14/18 16:13 Eosinophils # (Manual) 0.0 K/mm3 (0.0-0.4) 03/14/18 16:13 Basophils # (Manual) 0.0 K/mm3 (0.0-0.1) 03/14/18 16:13 Metamyelocytes # 0.0 K/mm3 03/14/18 16:13 Myelocytes # 0.0 K/mm3 03/14/18 16:13 Promyelocytes # 0.0 K/mm3 03/14/18 16:13 Blast Cells # 0.0 K/mm3 03/14/18 16:13 WBC Morphology Not Reportable 03/14/18 16:13 Hypersegmented Neuts Not Reportable 03/14/18 16:13 Hyposegmented Neuts Not Reportable 03/14/18 16:13 Hypogranular Neuts Not Reportable 03/14/18 16:13 Smudge Cells Not Reportable 03/14/18 16:13 Toxic Granulation Not Reportable 03/14/18 16:13 Toxic Vacuolation Not Reportable 03/14/18 16:13 Dohle Bodies Not Reportable 03/14/18 16:13 Pelger-Huet Anomaly Not Reportable 03/14/18 16:13 Melecio Rods Not Reportable 03/14/18 16:13 Platelet Estimate Consistent w auto 03/14/18 16:13 Clumped Platelets Not Reportable 03/14/18 16:13 Plt Clumps, EDTA Not Reportable 03/14/18 16:13 Large Platelets Not Reportable 03/14/18 16:13 Giant Platelets Not Reportable 03/14/18 16:13 Platelet Satelliting Not Reportable 03/14/18 16:13 Plt Morphology Comment Not Reportable 03/14/18 16:13 RBC Morphology Not Reportable 03/14/18 16:13 Dimorphic RBCs Not Reportable 03/14/18 16:13 Polychromasia Few 03/14/18 16:13 Hypochromasia 2+ 03/14/18 16:13 Poikilocytosis 1+ 03/14/18 16:13 Anisocytosis 2+ 03/14/18 16:13 Microcytosis Not Reportable 03/14/18 16:13 Macrocytosis Not Reportable 03/14/18 16:13 Spherocytes Not Reportable 03/14/18 16:13 Pappenheimer Bodies Not Reportable 03/14/18 16:13 Sickle Cells Not Reportable 03/14/18 16:13 Target Cells Few 03/14/18 16:13 Tear Drop Cells Not Reportable 03/14/18 16:13 Ovalocytes Not Reportable 03/14/18 16:13 Stomatocytes 1+ 03/14/18 16:13 Helmet Cells Not Reportable 03/14/18 16:13 Alvarado-Hubbard Bodies Not Reportable 03/14/18 16:13 Fingal Rings Not Reportable 03/14/18 16:13 [place] Cells Not Reportable 03/14/18 16:13 Bite Cells Not Reportable 03/14/18 16:13 Crenated Cell Not Reportable 03/14/18 16:13 Elliptocytes Few 03/14/18 16:13 Acanthocytes (Spur) Not Reportable 03/14/18 16:13 Rouleaux Not Reportable 03/14/18 16:13 Hemoglobin C Crystals Not Reportable 03/14/18 16:13 Schistocytes Not Reportable 03/14/18 16:13 Malaria parasites Not Reportable 03/14/18 16:13 Jose Antonio Bodies Not Reportable 03/14/18 16:13 Hem Pathologist Commnt No 03/14/18 16:13 PT 18.0 Sec. (12.2-14.9) H 03/14/18 16:13 INR 1.40 (0.87-1.13) H 03/14/18 16:13 VBG pH 7.280 (7.320-7.420) L 03/14/18 16:13 Sodium 137 mmol/L (137-145) 03/15/18 09:05 Potassium 4.6 mmol/L (3.6-5.0) 03/15/18 09:05 Chloride 104.0 mmol/L (98-107) 03/15/18 09:05 Carbon Dioxide 20 mmol/L (22-30) L 03/15/18 09:05 Anion Gap 18 mmol/L 03/15/18 09:05 BUN 15 mg/dL (7-17) 03/15/18 09:05 Creatinine < 0.2 mg/dL (0.7-1.2) L D 03/15/18 09:05 Estimated GFR > 60 ml/min 03/15/18 09:05 BUN/Creatinine Ratio 75 % 03/15/18 09:05 Glucose 101 mg/dL (65-100) H 03/15/18 09:05 POC Glucose 250 (70-105) H 03/14/18 16:03 Lactic Acid 1.30 mmol/L (0.7-2.0) 03/14/18 23:38 Calcium 8.9 mg/dL (8.4-10.2) 03/15/18 09:05 Total Bilirubin 14.40 mg/dL (0.1-1.2) H 03/15/18 09:05 AST 225 units/L (5-40) H 03/15/18 09:05 ALT 173 units/L (7-56) H 03/15/18 09:05 Alkaline Phosphatase 1122 units/L (35-129) H 03/15/18 09:05 Ammonia 20.0 umol/L (25-60) L 03/15/18 09:00 Total Protein 6.1 g/dL (6.3-8.2) L 03/15/18 09:05 Albumin 2.3 g/dL (3.9-5) L 03/15/18 09:05 Albumin/Globulin Ratio 0.6 % 03/15/18 09:05 Urine Color Red (Yellow) 03/14/18 16:43 Urine Turbidity Clear (Clear) 03/14/18 16:43 Urine pH 6.0 (5.0-7.0) 03/14/18 16:43 Ur Specific Hope 1.023 (1.003-1.030) 03/14/18 16:43 Urine Protein 100 mg/dl mg/dL (Negative) 03/14/18 16:43 Urine Glucose (UA) Neg mg/dL (Negative) 03/14/18 16:43 Urine Ketones Neg mg/dL (Negative) 03/14/18 16:43 Urine Blood Neg (Negative) 03/14/18 16:43 Urine Nitrite Neg (Negative) 03/14/18 16:43 Urine Bilirubin Mod (Negative) 03/14/18 16:43 Urine Ictotest Positive (Negative) 03/14/18 16:43 Urine Urobilinogen 4.0 mg/dL (<2.0) 03/14/18 16:43 Ur Leukocyte Esterase Sm (Negative) 03/14/18 16:43 Urine WBC (Auto) 116.0 /HPF (0.0-6.0) H 03/14/18 16:43 Urine RBC (Auto) 0.0 /HPF (0.0-6.0) 03/14/18 16:43 Urine Bacteria (Auto) 4+ /HPF (Negative) 03/14/18 16:43 Urine Mucus 3+ /HPF 03/14/18 16:43
[2018-03-15] MEDS: D5/0.45NS 1,000 ML IV SCH (22:16)
[2018-03-16] MEDS: DILAUDID IV PRN (02:46)
[2018-03-16 06:27] LABS: Hematocrit 25.8 % (30.3-42.9); Hemoglobin 8.4 gm/dl (10.1-14.3); Mean Corpuscular HGB Conc 33 % (30-34); Mean Corpuscular Hemoglobin 32 pg (28-32); Mean Corpuscular Volume 97 fl (79-97); Platelet Count 327 K/mm3 (140-440); Red Blood Count 2.67 M/mm3 (3.65-5.03); Red Cell Distribution Width 17.7 % (13.2-15.2)
[2018-03-16 06:54] LABS: Alanine Aminotransferase 143 units/L (7-56); Albumin 2.2 g/dL (3.9-5); BUN/Creatinine Ratio 33; Blood Urea Nitrogen 10 mg/dL (7-17); Calcium 8.7 mg/dL (8.4-10.2); Hemolysis Index 5
[2018-03-16 10:19] LABS: Anisocytosis 2+; Basophils % (Manual) 0 % (0.0-1.8); Eosinophils % (Manual) 0 % (0.0-4.3); Hypochromasia 1+; Poikilocytosis 1+; Stomatocytes 1+; Total Cells Counted 100
[2018-03-16 10:20] LABS: Platelet Estimate Consistent w Auto
[2018-03-16] MEDS: PEPCID IV SCH (10:33)
[2018-03-16] MEDS: LEVAQUIN 500MG/100ML 500 MG/100 ML BAG IV SCH (10:33)
[2018-03-16] MEDS: SODIUM CHLORIDE FLUSH SYRINGE 10 ML IV SCH (10:33)
[2018-03-16] MEDS: D5/0.45NS 1,000 ML IV SCH (10:42)
--- NOTE | 2018-03-16 13:46 | Discharge Summary ---
Providers - Providers Date of Admission: 03/14/18 19:54 Date of discharge: 03/16/18 Attending physician: HUSAM PARDO Primary care physician: MARIANA GILLIAM Hospitalization Condition: Fair Disposition: DC/[place]-06 HOME UNDER HOME [facility] Core Measure Documentation - Palliative Care Palliative Care/ Comfort Measures: Not Applicable - Core Measures Any of the following diagnoses?: none Exam - Constitutional Vitals: Temp Pulse Resp BP Pulse Ox 98.2 F 91 H 16 141/75 98 03/16/18 07:39 03/16/18 07:39 03/16/18 07:39 03/16/18 07:39 03/16/18 08:54 Plan Activity: advance as tolerated Diet: low fat, low cholesterol, low salt, diabetic, other (Mechanical soft diet, diabetic,cardiac) Special Instructions: physical therapy, home health RN Additional Instructions: 1.follow up with PCP in 2-3 days. 2.Follow up with Oncologist in 3-5 days Follow up with: PRIMARY CAREMD [Referring] - 3-5 Days
[2018-03-16 14:52] VITALS: BP 139/68
== END 2018-03-16 16:25 | disposition home health service (06) | DRG 871 ==
LOC: ED 15:52 → 2B-ACE 19:54
PROVIDERS: ADMIT Internal Medicine; ATTEND Internal Medicine
DX: A41.9 Sepsis, unspecified organism (principal); G93.41 Metabolic encephalopathy; E43 Unspecified severe protein-calorie malnutrition; K83.1 Obstruction of bile duct; N39.0 Urinary tract infection, site not specified; C25.9 Malignant neoplasm of pancreas, unspecified; E87.2 Acidosis; I82.522 Chronic embolism and thrombosis of left iliac vein; E11.9 Type 2 diabetes mellitus without complications; I11.0 Hypertensive heart disease with heart failure; I50.9 Heart failure, unspecified; F03.90 Unspecified dementia, unspecified severity, without behavioral disturbance, psychotic disturbance, mood disturbance, and anxiety; J44.9 Chronic obstructive pulmonary disease, unspecified; I10 Essential (primary) hypertension; K21.9 Gastro-esophageal reflux disease without esophagitis; M19.90 Unspecified osteoarthritis, unspecified site; Z79.01 Long term (current) use of anticoagulants; Z68.22 Body mass index [BMI] 22.0-22.9, adult; Z82.49 Family history of ischemic heart disease and other diseases of the circulatory system; Z90.49 Acquired absence of other specified parts of digestive tract; Z88.0 Allergy status to penicillin; Z86.73 Personal history of transient ischemic attack (TIA), and cerebral infarction without residual deficits; Z79.82 Long term (current) use of aspirin; Z90.710 Acquired absence of both cervix and uterus
CPT/HCPCS: 36415; 70450; 71045; 74177; 80048; 80053; 81001; 82140; 82805; 82962; 85007; 85025; 85610; 87040; 87076; 87086; 87186; 93005; 93010; J1170; J1956; J2405; J7040; Q9967

== ENCOUNTER 2018-04-26 11:29 | Inpatient (IN) | payer MEDICARE ==
[2018-04-26] MEDS ORDERED: NACL 0.9% 1000 ML 1,000 ML IV ONE (11:59)
[2018-04-26] MEDS ORDERED: SUBLIMAZE IV ONE (12:35)
[2018-04-26] MEDS ORDERED: NACL 0.9% 500 ML 500 ML IV ONE (12:39)
[2018-04-26] MEDS ORDERED: PROTONIX IV ONE ×2 (12:39→15:11)
--- NOTE | 2018-04-26 12:41 | Emergency Department Report ---
ED General Adult HPI - General Chief complaint: GI Bleed Stated complaint: VOMITING BLOOD Time Seen by Provider: 04/26/18 12:08 Source: family, EMS (ems notes not available at time of chart dictation), RN notes reviewed, old records reviewed Mode of arrival: Stretcher Limitations: Altered Mental Status, Physical Limitation, Other - History of Present Illness Initial comments: This is an unfortunate 78-year-old female with a past medical history of dementia, pancreatic cancer, currently on home hospice. The patient is brought to the ER by family for labored breathing, coffee-ground emesis, malaise and fatigue. In the emergency room, the patient is found to be somnolent, with black tarry stool, and hypotensive. Extensive discussion is had with patient's son, and daughter. They indicated that they would like the patient to be DO NOT RESUSCITATE, DO NOT INTUBATE, but they are amenable to comfort care. They are specifically amenable to IV fluids, IV pain medication, IV anti-anxiety medication, and packed red blood cell transfusion. They specifically did not want intubation, chest compressions or central line. Patient is found to have multiple derangements in the emergency room, including acute renal insufficiency and hypernatremia. The patient is nonverbal and cannot describe exacerbating or relieving factors, qualitative nature of her symptoms, or radiation. She is started on a fentanyl and Protonix drip. A gastroenterology consult was canceled given the family's goals of care are for comfort only. They would prefer to not have additional bloods drawn, and would also prefer to avoid additional radiology. The patient was admitted to the medical service under Dr. Covarrubias for aggressive palliative care and therapy. -: unknown Radiation: other Quality: other Consistency: other Improves with: other Worsens with: other Associated Symptoms: weakness, other - Related Data Home Medications Medication Instructions Recorded Confirmed Last Taken Montelukast [Singulair] 10 mg PO DAILY 06/20/13 03/16/18 03/02/16 Atorvastatin Calcium [Lipitor] 20 mg PO QHS 09/13/15 03/16/18 03/02/16 Cholecalciferol Vit D3 [Vitamin D3] 1,000 unit PO QDAY 09/13/15 03/16/18 Omeprazole 40 mg PO DAILY 09/13/15 03/16/18 03/02/16 Spironolactone [Aldactone] 25 mg PO DAILY 09/13/15 03/16/18 03/02/16 Donepezil HCl [Donepezil HCl Odt] 5 mg PO QDAY 12/08/15 03/16/18 03/02/16 Furosemide [Lasix TAB] 40 mg PO QDAY 12/08/15 03/16/18 03/02/16 Simvastatin [Zocor TAB] 40 mg PO QHS 12/08/15 03/16/18 03/02/16 Sitagliptin Phosphate [Januvia] 50 mg PO QDAY 12/08/15 03/16/18 03/02/16 Aspirin [Aspirin BABY CHEW TAB] 81 mg PO QDAY 03/03/16 03/16/18 03/03/16 Previous Rx's Medication Instructions Recorded Last Taken Type Lisinopril [Zestril TAB] 20 mg PO BID #60 tablet 12/09/15 03/02/16 Rx Metoprolol [Lopressor TAB] 100 mg PO BID tablet 12/09/15 03/02/16 Rx hydrALAZINE [Apresoline TAB] 25 mg PO Q8HR #90 tab 12/09/15 03/02/16 Rx Polyethylene Glycol 3350 [Miralax 17 gm PO QDAY #30 packet 03/04/16 Unknown Rx 3350] Hydrocortisone 28.4 gm TP BID #1 cream..g. 07/23/16 Unknown Rx hydrOXYzine HCl [Hydroxyzine HCl] 25 mg PO BID PRN #25 tablet 07/23/16 Unknown Rx Lactulose [Cephulac] 20 gm PO QDAY PRN #90 ml 10/27/16 Unknown Rx Famotidine [Pepcid] 20 mg PO BID #40 tablet 03/13/17 Unknown Rx HYDROcodone/APAP 5-325 [[place] 1 each PO Q6HR PRN #10 tablet 03/13/17 Unknown Rx 5-325 mg TAB] Ondansetron [Zofran Odt] 4 mg PO Q8HR #15 tab.rapdis 03/13/17 Unknown Rx metroNIDAZOLE [Flagyl TAB] 500 mg PO Q12HR #20 tab 03/13/17 Unknown Rx Triamcinolone 0.5% [Kenalog 0.5% 1 applic TP TID #1 tube 03/16/17 Unknown Rx CREAM] Ciprofloxacin HCl [Ciprofloxacin 500 mg PO Q12HR 5 Days tab 03/16/18 Unknown Rx TAB] Allergies Allergy/AdvReac Type Severity Reaction Status Date / Time Penicillins Allergy Unknown Verified 04/26/18 11:59 ED Review of Systems ROS: Stated complaint: VOMITING BLOOD Other details as noted in HPI Comment: Unobtainable due to pts medical conditions ED Past Medical Hx - Past Medical History Previous Medical History?: Yes Hx Hypertension: Yes Hx CVA: Yes Hx Congestive Heart Failure: Yes Hx Diabetes: Yes Hx GERD: Yes Hx of Cancer: Yes (Pancreatic) Hx Arthritis: Yes Hx Headaches / Migraines: Yes Hx Seizures: No Hx Asthma: Yes Hx COPD: Yes Hx Dementia: Yes Additional medical history: TIA. HIGH CHOLESTEROL - Surgical History Hx Cholecystectomy: Yes Hx Appendectomy: Yes Additional Surgical History: hysterectomy - Social History Smoking Status: Never Smoker Substance Use Type: None - Medications Home Medications: Home Medications Medication Instructions Recorded Confirmed Last Taken Type Montelukast [Singulair] 10 mg PO DAILY 06/20/13 03/16/18 03/02/16 History Atorvastatin Calcium [Lipitor] 20 mg PO QHS 09/13/15 03/16/18 03/02/16 History Cholecalciferol Vit D3 [Vitamin D3] 1,000 unit PO QDAY 09/13/15 03/16/18 History Omeprazole 40 mg PO DAILY 09/13/15 03/16/18 03/02/16 History Spironolactone [Aldactone] 25 mg PO DAILY 09/13/15 03/16/18 03/02/16 History Donepezil HCl [Donepezil HCl Odt] 5 mg PO QDAY 12/08/15 03/16/18 03/02/16 History Furosemide [Lasix TAB] 40 mg PO QDAY 12/08/15 03/16/18 03/02/16 History Simvastatin [Zocor TAB] 40 mg PO QHS 12/08/15 03/16/18 03/02/16 History Sitagliptin Phosphate [Januvia] 50 mg PO QDAY 12/08/15 03/16/18 03/02/16 History Lisinopril [Zestril TAB] 20 mg PO BID #60 tablet 12/09/15 03/16/18 03/02/16 Rx Metoprolol [Lopressor TAB] 100 mg PO BID tablet 12/09/15 03/16/18 03/02/16 Rx hydrALAZINE [Apresoline TAB] 25 mg PO Q8HR #90 tab 12/09/15 03/16/18 03/02/16 Rx Aspirin [Aspirin BABY CHEW TAB] 81 mg PO QDAY 03/03/16 03/16/18 03/03/16 History Polyethylene Glycol 3350 [Miralax 17 gm PO QDAY #30 packet 03/04/16 03/16/18 Unknown Rx 3350] Hydrocortisone 28.4 gm TP BID #1 cream..g. 07/23/16 03/16/18 Unknown Rx hydrOXYzine HCl [Hydroxyzine HCl] 25 mg PO BID PRN #25 tablet 07/23/16 03/16/18 Unknown Rx Lactulose [Cephulac] 20 gm PO QDAY PRN #90 ml 10/27/16 03/16/18 Unknown Rx Famotidine [Pepcid] 20 mg PO BID #40 tablet 03/13/17 03/16/18 Unknown Rx HYDROcodone/APAP 5-325 [[place] 1 each PO Q6HR PRN #10 tablet 03/13/17 03/16/18 Unknown Rx 5-325 mg TAB] Ondansetron [Zofran Odt] 4 mg PO Q8HR #15 tab.rapdis 03/13/17 03/16/18 Unknown Rx metroNIDAZOLE [Flagyl TAB] 500 mg PO Q12HR #20 tab 03/13/17 03/16/18 Unknown Rx Triamcinolone 0.5% [Kenalog 0.5% 1 applic TP TID #1 tube 03/16/17 03/16/18 Unknown Rx CREAM] Ciprofloxacin HCl [Ciprofloxacin 500 mg PO Q12HR 5 Days tab 03/16/18 Unknown Rx TAB] ED Physical Exam - General Limitations: Altered Mental Status, Physical Limitation General appearance: obtunded - Head Head exam: Present: atraumatic, normocephalic - Eye Eye exam: Present: scleral icterus - ENT ENT exam: Present: mucous membranes dry - Neck Neck exam: Present: normal inspection - Respiratory Respiratory exam: Present: decreased breath sounds - Cardiovascular Cardiovascular Exam: Present: normal rhythm, tachycardia, normal heart sounds. Absent: bradycardia - GI/Abdominal GI/Abdominal exam: Present: soft. Absent: distended, tenderness, guarding, rebound, rigid, pulsatile mass - Rectal Rectal exam: Present: heme (+) stool, black stool - Extremities Exam Extremities exam: Present: other (patient moving 4 extremities spontaneously) - Back Exam Back exam: Absent: tenderness, CVA tenderness (R) - Neurological Exam Neurological exam: Present: altered - Psychiatric Psychiatric exam: Present: other (patient is nonverbal) - Skin Skin exam: Present: dry ED Course Vital Signs 04/26/18 11:53 Temperature 97.7 F Pulse Rate 101 H Respiratory 10 L Rate Blood Pressure 63/34 - Reevaluation(s) Reevaluation #1: 04/26/18 15:07 The nursing team is unable to establish a peripheral IV access. Family has given verbal consent to attempt right-sided external jugular placement, which I did with one attempt with no obvious difficulty. I have revisited the question about central line placement, and the patient family is adamant that they do not want central venous access. If this IV fails, patient could get subcutaneous for intramuscular pain medication, which family is amenable to, and intranasal fentanyl would also be a reasonable alternative. We have asked the pharmacy to reach out for intranasal fentanyl from other hospitals, and they're currently looking into this. - EJ/Peripheral Line Neck R Time Out Performed: Yes Indications: nurses unable to establis Skin Cleansed in Sterile Fashion: Yes Size: 22 Dressing Placed: Tegaderm Patient Tolerated Procedure: well ED Medical Decision Making - Lab Data Result diagrams: 04/26/18 12:49 04/26/18 12:49 Vital Signs 04/26/18 11:53 Temperature 97.7 F Pulse Rate 101 H Respiratory 10 L Rate Blood Pressure 63/34 Lab Results 04/26/18 04/26/18 04/26/18 Range/Units 12:49 12:49 12:49 WBC 10.4 (4.5-11.0) K/mm3 RBC 3.11 L (3.65-5.03) M/mm3 Hgb 10.1 (10.1-14.3) gm/dl Hct 31.9 (30.3-42.9) % MCV 103 H (79-97) fl MCH 33 H (28-32) pg MCHC 32 (30-34) % RDW 19.6 H (13.2-15.2) % Plt Count 121 L (140-440) K/mm3 Add Manual Diff Complete Total Counted 100 Seg Neuts % (Manual) 86.0 H (40.0-70.0) % Band Neutrophils % 3.0 % Lymphocytes % (Manual) 10.0 L (13.4-35.0) % Reactive Lymphs % (Man) 0 % Monocytes % (Manual) 1.0 (0.0-7.3) % Eosinophils % (Manual) 0 (0.0-4.3) % Basophils % (Manual) 0 (0.0-1.8) % Metamyelocytes % 0 % Myelocytes % 0 % Promyelocytes % 0 % Blast Cells % 0 % Nucleated RBC % 3.0 H (0.0-0.9) % Seg Neutrophils # Man 8.9 H (1.8-7.7) K/mm3 Band Neutrophils # 0.3 K/mm3 Lymphocytes # (Manual) 1.0 L (1.2-5.4) K/mm3 Abs React Lymphs (Man) 0.0 K/mm3 Monocytes # (Manual) 0.1 (0.0-0.8) K/mm3 Eosinophils # (Manual) 0.0 (0.0-0.4) K/mm3 Basophils # (Manual) 0.0 (0.0-0.1) K/mm3 Metamyelocytes # 0.0 K/mm3 Myelocytes # 0.0 K/mm3 Promyelocytes # 0.0 K/mm3 Blast Cells # 0.0 K/mm3 WBC Morphology Not Reportable Hypersegmented Neuts Not Reportable Hyposegmented Neuts Not Reportable Hypogranular Neuts Not Reportable Smudge Cells Not Reportable Toxic Granulation Not Reportable Toxic Vacuolation Not Reportable Dohle Bodies Not Reportable Pelger-Huet Anomaly Not Reportable Melecio Rods Not Reportable Platelet Estimate Cons Clumped Platelets Not Reportable Plt Clumps, EDTA Not Reportable Large Platelets Not Reportable Giant Platelets Not Reportable Platelet Satelliting Not Reportable Plt Morphology Comment Not Reportable RBC Morphology Not Reportable Dimorphic RBCs Not Reportable Polychromasia Not Reportable Hypochromasia Not Reportable Poikilocytosis Not Reportable Anisocytosis 1+ Microcytosis Not Reportable Macrocytosis Not Reportable Spherocytes Not Reportable Pappenheimer Bodies Not Reportable Sickle Cells Not Reportable Target Cells Not Reportable Tear Drop Cells Few Ovalocytes Not Reportable Helmet Cells Not Reportable [place]var[place]ors Bodies Not Reportable [place] Rings Not Reportable Jeevan Cells Not Reportable Bite Cells Not Reportable Crenated Cell Not Reportable Elliptocytes Not Reportable Acanthocytes (Spur) Not Reportable Rouleaux Not Reportable Hemoglobin C Crystals Not Reportable Schistocytes Not Reportable Malaria parasites Not Reportable [place] Bodies Not Reportable Hem Pathologist Commnt No PT 17.0 H (12.2-14.9) Sec. INR 1.33 H (0.87-1.13) APTT 73.0 H* (24.2-36.6) Sec. Sodium 177 H* (137-145) mmol/L Potassium 3.6 (3.6-5.0) mmol/L Chloride 128.7 H (98-107) mmol/L Carbon Dioxide 24 (22-30) mmol/L Anion Gap 28 mmol/L BUN 81 H (7-17) mg/dL Creatinine 3.6 H (0.7-1.2) mg/dL Estimated GFR 15 ml/min BUN/Creatinine Ratio 23 % Glucose 219 H (65-100) mg/dL Calcium 9.4 (8.4-10.2) mg/dL Total Bilirubin 8.50 H (0.1-1.2) mg/dL AST 73 H (5-40) units/L ALT 66 H (7-56) units/L Alkaline Phosphatase 334 H (35-129) units/L Total Protein 6.1 L (6.3-8.2) g/dL Albumin 3.0 L (3.9-5) g/dL Albumin/Globulin Ratio 1.0 % Lipase 40 (13-60) units/L - Medical Decision Making Differential diagnosis, including but not limited to: Multiorgan dysfunction, admitted , GI bleed, pancreatic cancer Assessment and plan: Unfortunate 78-year-old female with metastatic pancreatic cancer, with multiple abnormalities, including hemodynamic instability, tachycardia, GI bleed, renal insufficiency and hypernatremia. Family's goals of care are for comfort and palliation. Daughter and son have signed DO NOT RESUSCITATE, DO NOT INTUBATE, and they are aware of poor prognosis. We will do our best in the emergency room to alleviate pain and suffering and to provide maximum palliative care for this unfortunate patient. Critical care attestation.: If time is entered above; I have spent that time in minutes in the direct care of this critically ill patient, excluding procedure time. ED Disposition Clinical Impression: Dementia, GI bleed Pancreatic cancer Qualifiers: Pancreatic malignancy location: head of pancreas Qualified Code(s): C25.0 - Malignant neoplasm of head of pancreas Disposition: OP ADMIT IP TO THIS HOSP Is pt being admited?: Yes Condition: Poor
--- NOTE | 2018-04-26 12:48 | History and Physical Report ---
History of Present Illness Chief complaint: Shes getting worse, we just want her comfortable History of present illness: 78 YO Female Hospice Patient with Pancreatic Cancer, CVA, HTN, COPD, Dementia, HLD, DM,GERD, OA, Bilateral DVT on on anticoagulation, Asthma presents to ED for evaluation. Pt is stuporous and unable to provide detained history. Pt family is at bedside and provides history. As per family, the patient has experienced several episodes of couging up bloos, and worsening confusion over the past 3 days with worsening symptoms over the past 1 day. No reports of fever , chills, CP, Palpitations, NVD, syncope, trauma, or recent ill contacts. Pt seen and evaluated in ED and found to have End Stage Pancreatic Cancer, Obstructive Jaundice, Encephalopathy. Pt prognosis discussed with family. Pt family revoke hospice care at time of admission due to duplication of care. Pt admitted to [facility] unit. Pt treated with pain control, IVF resuscitation, and symptom management for Pancreatic Cancer. Past History Past Medical History: arthritis, cancer, COPD, diabetes, heart failure Past Surgical History: appendectomy, cholecystectomy, hysterectomy Social history: , lives with family Family history: diabetes, hypertension Medications and Allergies Allergies Allergy/AdvReac Type Severity Reaction Status Date / Time Penicillins Allergy Unknown Verified 04/26/18 11:59 Home Medications Medication Instructions Recorded Confirmed Last Taken Type Montelukast [Singulair] 10 mg PO DAILY 06/20/13 03/16/18 03/02/16 History Atorvastatin Calcium [Lipitor] 20 mg PO QHS 09/13/15 03/16/18 03/02/16 History Cholecalciferol Vit D3 [Vitamin D3] 1,000 unit PO QDAY 09/13/15 03/16/18 History Omeprazole 40 mg PO DAILY 09/13/15 03/16/18 03/02/16 History Spironolactone [Aldactone] 25 mg PO DAILY 09/13/15 03/16/18 03/02/16 History Donepezil HCl [Donepezil HCl Odt] 5 mg PO QDAY 12/08/15 03/16/18 03/02/16 History Furosemide [Lasix TAB] 40 mg PO QDAY 12/08/15 03/16/18 03/02/16 History Simvastatin [Zocor TAB] 40 mg PO QHS 12/08/15 03/16/18 03/02/16 History Sitagliptin Phosphate [Januvia] 50 mg PO QDAY 12/08/15 03/16/18 03/02/16 History Lisinopril [Zestril TAB] 20 mg PO BID #60 tablet 12/09/15 03/16/18 03/02/16 Rx Metoprolol [Lopressor TAB] 100 mg PO BID tablet 12/09/15 03/16/18 03/02/16 Rx hydrALAZINE [Apresoline TAB] 25 mg PO Q8HR #90 tab 12/09/15 03/16/18 03/02/16 Rx Aspirin [Aspirin BABY CHEW TAB] 81 mg PO QDAY 03/03/16 03/16/18 03/03/16 History Polyethylene Glycol 3350 [Miralax 17 gm PO QDAY #30 packet 03/04/16 03/16/18 Unknown Rx 3350] Hydrocortisone 28.4 gm TP BID #1 cream..g. 07/23/16 03/16/18 Unknown Rx hydrOXYzine HCl [Hydroxyzine HCl] 25 mg PO BID PRN #25 tablet 07/23/16 03/16/18 Unknown Rx Lactulose [Cephulac] 20 gm PO QDAY PRN #90 ml 10/27/16 03/16/18 Unknown Rx Famotidine [Pepcid] 20 mg PO BID #40 tablet 03/13/17 03/16/18 Unknown Rx HYDROcodone/APAP 5-325 [[place] 1 each PO Q6HR PRN #10 tablet 03/13/17 03/16/18 Unknown Rx 5-325 mg TAB] Ondansetron [Zofran Odt] 4 mg PO Q8HR #15 tab.rapdis 03/13/17 03/16/18 Unknown Rx metroNIDAZOLE [Flagyl TAB] 500 mg PO Q12HR #20 tab 03/13/17 03/16/18 Unknown Rx Triamcinolone 0.5% [Kenalog 0.5% 1 applic TP TID #1 tube 03/16/17 03/16/18 Unknown Rx CREAM] Ciprofloxacin HCl [Ciprofloxacin 500 mg PO Q12HR 5 Days tab 03/16/18 Unknown Rx TAB] Active Meds: Active Medications Fentanyl 2,000 mcg/ Sodium (Chloride) 100 mls @ 2.83 mls/hr IV TITR JAKY; Protocol Sodium Chloride (Nacl 0.9% 500 Ml) 500 mls @ 999 mls/hr IV ONCE ONE Stop: 04/26/18 13:09 Pantoprazole Sodium 80 mg/ (Sodium Chloride) 100 mls @ 10 mls/hr IV DIRECT JAKY Review of Systems ROS unobtainable: due to mental status Exam - Constitutional Vitals: Temp Pulse Resp BP Pulse Ox 97.7 F 101 H 10 L 63/34 04/26/18 11:53 04/26/18 11:53 04/26/18 11:53 04/26/18 11:53 General appearance: Present: mild distress, cachectic - EENT Eyes: Present: scleral icterus - Neck Neck: Present: supple, normal ROM, masses or JVD - Respiratory Respiratory effort: labored Respiratory: bilateral: diminished - Cardiovascular Heart Sounds: Present: S1 & S2. Absent: rub, click - Extremities Extremities: pulses symmetrical, No edema Extremity abnormal: edema Peripheral Pulses: abnormal (thready, diminished) - Abdominal General gastrointestinal: Present: soft Female genitourinary: Present: normal - Integumentary Integumentary: Present: dry, jaundice, clammy, pale, decreased turgor - Musculoskeletal Musculoskeletal: generalized weakness - Psychiatric Psychiatric: no intact judgment & insight, no memory intact - Neurologic Neurologic: no CNII-XII intact, no gait normal Assessment and Plan - Patient Problems (1) Pancreatic malignant neoplasm Status: Acute Qualifiers: Pancreatic malignancy location: head of pancreas Qualified Code(s): C25.0 - Malignant neoplasm of head of pancreas Plan to address problem: Pain control with IV Morphine, IV ativan. Initiate Comfort measures, supportive care. (2) Obstructive jaundice due to malignant neoplasm Status: Acute Plan to address problem: Dawn control, supportive care,IVF resuscitation, Family request comfort measures only. (3) Encephalopathy Status: Acute Plan to address problem: Supportive care, pain control. Comfort measures. (4) Severe malnutrition Status: Acute Plan to address problem: IVF resuscitation, supportive care, clear liquids as tolerated. (5) DVT prophylaxis Status: Acute Plan to address problem: SCD to to BLE while in bed as tolerated.
[2018-04-26] MEDS ORDERED: MORPHINE IV PRN (12:53)
[2018-04-26] MEDS ORDERED: ZOFRAN IV PRN (12:53)
[2018-04-26] MEDS ORDERED: TYLENOL PO PRN (12:53)
[2018-04-26] MEDS ORDERED: SODIUM CHLORIDE FLUSH SYRINGE 10 ML IV PRN (12:53)
[2018-04-26] MEDS ORDERED: PROVENTIL IH PRN (12:53)
[2018-04-26] MEDS ORDERED: ATIVAN IV PRN (12:57)
[2018-04-26] MEDS ORDERED: D5/0.45NS 1,000 ML IV SCH (13:00)
[2018-04-26] MEDS ORDERED: SUBLIMAZE 2,000 MCG in NACL 0.9% 60 ML IV SCH (13:00)
[2018-04-26] MEDS ORDERED: PROTONIX 80 MG in NACL 0.9% 100 ML IV SCH (13:00)
[2018-04-26 13:01] LABS: Hematocrit 31.9 % (30.3-42.9); Hemoglobin 10.1 gm/dl (10.1-14.3); Mean Corpuscular HGB Conc 32 % (30-34); Mean Corpuscular Hemoglobin 33 pg (28-32); Mean Corpuscular Volume 103 fl (79-97); Platelet Count 121 K/mm3 (140-440); Red Blood Count 3.11 M/mm3 (3.65-5.03); Red Cell Distribution Width 19.6 % (13.2-15.2)
[2018-04-26 13:27] LABS: Calcium 9.4 mg/dL (8.4-10.2)
[2018-04-26 13:28] LABS: INR 1.33 (0.87-1.13)
[2018-04-26 14:23] LABS: Anisocytosis 1+; Band Neutrophils # (Manual) 0.3 K/mm3; Basophils % (Manual) 0 % (0.0-1.8); Eosinophils % (Manual) 0 % (0.0-4.3); Total Cells Counted 100
[2018-04-26 14:24] LABS: Platelet Estimate Cons; Tear Drop Cells Few
[2018-04-26] MEDS ORDERED: NACL 0.9% 500 ML 500 ML ONE (15:11)
[2018-04-26] MEDS ORDERED: SUBLIMAZE ONE (15:11)
[2018-04-26] MEDS: SODIUM CHLORIDE FLUSH SYRINGE 10 ML IV SCH (21:05)
--- NOTE | 2018-04-27 07:56 | Progress Note ---
Assessment and Plan Assessment and plan: --Severe hypernatremia; D5 half normal, free water, closely monitor electrolytes Follow daily labs not available --Acute kidney injury; secondary to ATN, prerenal azotemia Vigorous IV hydration, free water supplementation Closely monitor renal function and avoid nephrotoxins --Pancreatic cancer; symptomatic management and supportive care Pain control, IV fluids, DO NOT RESUSCITATE status, comfort measures Possible home with hospice --Obstructive jaundice; secondary to pancreatic cancer Supportive care --Severe malnutrition; due to underlying disease process Nutrition supplements, nutrition consult as needed, diet as tolerated --Severe metabolic encephalopathy Supportive care, neurochecks --DVT prophylaxis;SCDs --DO NOT RESUSCITATE status --Discharge planning; possible home with home hospice Critically ill, but not survive this admission Family aware Closely monitor the patient and adjust management as needed History Interval history: Patient seen and examined this morning medical records reviewed Patient has end-stage pancreatic cancer, critically ill Poor prognosis, respiratory distress, abdominal breathing DO NOT RESUSCITATE status Patient was under hospice care Multiple family members at the bedside Requests comfort measures Patient is severely dehydrated cachectic Unresponsive Hospitalist Physical - Constitutional Vitals: Temp Pulse Resp BP Pulse Ox 97.7 F 107 H 24 70/34 96 04/26/18 11:53 04/26/18 22:00 04/26/18 22:00 04/27/18 02:45 04/26/18 22:20 General appearance: Present: severe distress, cachectic, disheveled - EENT Eyes: Present: PERRL, EOM intact - Neck Neck: Present: supple - Respiratory Respiratory effort: labored Respiratory: bilateral: diminished, rhonchi, negative: other (Agonal breathing) - Cardiovascular Rhythm: regular Heart Sounds: Present: S1 & S2 - Extremities Extremities: no ischemia, No edema - Abdominal General gastrointestinal: soft, non-tender, non-distended, normal bowel sounds - Integumentary Integumentary: Present: clear, warm - Psychiatric Psychiatric: other (unresponsive) - Neurologic Neurologic: other (unresponsive) Results - Labs CBC & Chem 7: 04/27/18 08:22 04/27/18 08:22 Labs: Laboratory Last Values WBC 10.4 K/mm3 (4.5-11.0) 04/26/18 12:49 RBC 3.11 M/mm3 (3.65-5.03) L 04/26/18 12:49 Hgb 10.1 gm/dl (10.1-14.3) 04/26/18 12:49 Hct 31.9 % (30.3-42.9) 04/26/18 12:49 MCV 103 fl (79-97) H 04/26/18 12:49 MCH 33 pg (28-32) H 04/26/18 12:49 MCHC 32 % (30-34) 04/26/18 12:49 RDW 19.6 % (13.2-15.2) H 04/26/18 12:49 Plt Count 121 K/mm3 (140-440) L 04/26/18 12:49 Add Manual Diff Complete 04/26/18 12:49 Total Counted 100 04/26/18 12:49 Seg Neuts % (Manual) 86.0 % (40.0-70.0) H 04/26/18 12:49 Band Neutrophils % 3.0 % 04/26/18 12:49 Lymphocytes % (Manual) 10.0 % (13.4-35.0) L 04/26/18 12:49 Reactive Lymphs % (Man) 0 % 04/26/18 12:49 Monocytes % (Manual) 1.0 % (0.0-7.3) 04/26/18 12:49 Eosinophils % (Manual) 0 % (0.0-4.3) 04/26/18 12:49 Basophils % (Manual) 0 % (0.0-1.8) 04/26/18 12:49 Metamyelocytes % 0 % 04/26/18 12:49 Myelocytes % 0 % 04/26/18 12:49 Promyelocytes % 0 % 04/26/18 12:49 Blast Cells % 0 % 04/26/18 12:49 Nucleated RBC % 3.0 % (0.0-0.9) H 04/26/18 12:49 Seg Neutrophils # Man 8.9 K/mm3 (1.8-7.7) H 04/26/18 12:49 Band Neutrophils # 0.3 K/mm3 04/26/18 12:49 Lymphocytes # (Manual) 1.0 K/mm3 (1.2-5.4) L 04/26/18 12:49 Abs React Lymphs (Man) 0.0 K/mm3 04/26/18 12:49 Monocytes # (Manual) 0.1 K/mm3 (0.0-0.8) 04/26/18 12:49 Eosinophils # (Manual) 0.0 K/mm3 (0.0-0.4) 04/26/18 12:49 Basophils # (Manual) 0.0 K/mm3 (0.0-0.1) 04/26/18 12:49 Metamyelocytes # 0.0 K/mm3 04/26/18 12:49 Myelocytes # 0.0 K/mm3 04/26/18 12:49 Promyelocytes # 0.0 K/mm3 04/26/18 12:49 Blast Cells # 0.0 K/mm3 04/26/18 12:49 WBC Morphology Not Reportable 04/26/18 12:49 Hypersegmented Neuts Not Reportable 04/26/18 12:49 Hyposegmented Neuts Not Reportable 04/26/18 12:49 Hypogranular Neuts Not Reportable 04/26/18 12:49 Smudge Cells Not Reportable 04/26/18 12:49 Toxic Granulation Not Reportable 04/26/18 12:49 Toxic Vacuolation Not Reportable 04/26/18 12:49 Dohle Bodies Not Reportable 04/26/18 12:49 Pelger-Huet Anomaly Not Reportable 04/26/18 12:49 Melecio Rods Not Reportable 04/26/18 12:49 Platelet Estimate Cons 04/26/18 12:49 Clumped Platelets Not Reportable 04/26/18 12:49 Plt Clumps, EDTA Not Reportable 04/26/18 12:49 Large Platelets Not Reportable 04/26/18 12:49 Giant Platelets Not Reportable 04/26/18 12:49 Platelet Satelliting Not Reportable 04/26/18 12:49 Plt Morphology Comment Not Reportable 04/26/18 12:49 RBC Morphology Not Reportable 04/26/18 12:49 Dimorphic RBCs Not Reportable 04/26/18 12:49 Polychromasia Not Reportable 04/26/18 12:49 Hypochromasia Not Reportable 04/26/18 12:49 Poikilocytosis Not Reportable 04/26/18 12:49 Anisocytosis 1+ 04/26/18 12:49 Microcytosis Not Reportable 04/26/18 12:49 Macrocytosis Not Reportable 04/26/18 12:49 Spherocytes Not Reportable 04/26/18 12:49 Pappenheimer Bodies Not Reportable 04/26/18 12:49 Sickle Cells Not Reportable 04/26/18 12:49 Target Cells Not Reportable 04/26/18 12:49 Tear Drop Cells Few 04/26/18 12:49 Ovalocytes Not Reportable 04/26/18 12:49 Helmet Cells Not Reportable 04/26/18 12:49 Alvarado-Wilmer Bodies Not Reportable 04/26/18 12:49 [place] Rings Not Reportable 04/26/18 12:49 Jeevan Cells Not Reportable 04/26/18 12:49 Bite Cells Not Reportable 04/26/18 12:49 Crenated Cell Not Reportable 04/26/18 12:49 Elliptocytes Not Reportable 04/26/18 12:49 Acanthocytes (Spur) Not Reportable 04/26/18 12:49 Rouleaux Not Reportable 04/26/18 12:49 Hemoglobin C Crystals Not Reportable 04/26/18 12:49 Schistocytes Not Reportable 04/26/18 12:49 Malaria parasites Not Reportable 04/26/18 12:49 Jose Antonio Bodies Not Reportable 04/26/18 12:49 Hem Pathologist Commnt No 04/26/18 12:49 PT 17.0 Sec. (12.2-14.9) H 04/26/18 12:49 INR 1.33 (0.87-1.13) H 04/26/18 12:49 APTT 73.0 Sec. (24.2-36.6) H* 04/26/18 12:49 Sodium 177 mmol/L (137-145) H* 04/26/18 12:49 Potassium 3.6 mmol/L (3.6-5.0) 04/26/18 12:49 Chloride 128.7 mmol/L (98-107) H 04/26/18 12:49 Carbon Dioxide 24 mmol/L (22-30) 04/26/18 12:49 Anion Gap 28 mmol/L 04/26/18 12:49 BUN 81 mg/dL (7-17) H 04/26/18 12:49 Creatinine 3.6 mg/dL (0.7-1.2) H 04/26/18 12:49 Estimated GFR 15 ml/min 04/26/18 12:49 BUN/Creatinine Ratio 23 % 04/26/18 12:49 Glucose 219 mg/dL (65-100) H 04/26/18 12:49 Calcium 9.4 mg/dL (8.4-10.2) 04/26/18 12:49 Total Bilirubin 8.50 mg/dL (0.1-1.2) H 04/26/18 12:49 AST 73 units/L (5-40) H 04/26/18 12:49 ALT 66 units/L (7-56) H 04/26/18 12:49 Alkaline Phosphatase 334 units/L (35-129) H 04/26/18 12:49 Total Protein 6.1 g/dL (6.3-8.2) L 04/26/18 12:49 Albumin 3.0 g/dL (3.9-5) L 04/26/18 12:49 Albumin/Globulin Ratio 1.0 % 04/26/18 12:49 Lipase 40 units/L (13-60) 04/26/18 12:49 Blood Type B POSITIVE 04/26/18 12:58 Antibody Screen Negative 04/26/18 12:58
[2018-04-27 08:38] LABS: Hematocrit 28.8 % (30.3-42.9); Hemoglobin 8.7 gm/dl (10.1-14.3); Mean Corpuscular HGB Conc 30 % (30-34); Mean Corpuscular Hemoglobin 32 pg (28-32); Mean Corpuscular Volume 107 fl (79-97)
[2018-04-27 08:45] LABS: Platelet Count 96 K/mm3 (140-440); Red Cell Distribution Width 20.5 % (13.2-15.2)
[2018-04-27 08:58] LABS: Calcium 8.8 mg/dL (8.4-10.2)
[2018-04-27] MEDS: SODIUM CHLORIDE FLUSH SYRINGE 10 ML IV SCH (10:42)
[2018-04-27] MEDS ORDERED: D5W 1,000 ML IV SCH (11:00)
[2018-04-27 12:44] LABS: Band Neutrophils # (Manual) 1.9 K/mm3; Basophils % (Manual) 0 % (0.0-1.8); Eosinophils % (Manual) 0 % (0.0-4.3); Total Cells Counted 100
[2018-04-27 12:45] LABS: Anisocytosis 1+; Platelet Estimate Cons; Toxic Granulation 1+
[2018-04-27 14:44] VITALS: BP 67/33
--- NOTE | 2018-04-27 18:00 | Death Summary ---
Summary - Providers Date of service: 04/27/18 Attending: OSMAR OMALLEY - summary Date of admission: 04/26/18 12:53 Date of : 04/27/18 (at 17:40 hrs[5:40pm]) Reason for admission: worsening level of consciousness/GI bleeding Significant findings: Discharge diagnosis; --End-stage pancreatic cancer --Obstructive jaundice --Severe hypernatremia --Acute kidney injury --Severe malnutrition --Toxic metabolic encephalopathy --Hypovolemic shock --Thrombocytopenia --DO NOT RESUSCITATE status Disposition: Patient - Final diagnosis (1) Pancreatic malignant neoplasm Qualifiers: Pancreatic malignancy location: head of pancreas Qualified Code(s): C25.0 - Malignant neoplasm of head of pancreas Note: Final diagnosis: (2) Toxic metabolic encephalopathy Note: Final diagnosis: (3) Hypovolemic shock Note: Final diagnosis: (4) Obstructive jaundice due to malignant neoplasm Note: Final diagnosis: (5) Gastrointestinal bleeding Note: Final diagnosis: (6) Hypernatremia Note: Final diagnosis: (7) Metabolic acidosis Note: Final diagnosis: (8) Sepsis Qualifiers: Sepsis type: sepsis due to unspecified organism Qualified Code(s): A41.9 - Sepsis, unspecified organism Note: Final diagnosis: (9) Severe malnutrition Note: Final diagnosis:
== END 2018-04-27 20:00 | DRG 871 ==
LOC: ED 11:29 → 3A 12:53 → 2B-ACE 14:32
PROVIDERS: ADMIT Internal Medicine; ATTEND Internal Medicine
PROC: 05HP33Z Insertion of Infusion Device into Right External Jugular Vein, Percutaneous Approach (ICD-10-PCS; principal; 2018-04-26)
DX: A41.9 Sepsis, unspecified organism (principal); K83.1 Obstruction of bile duct; E43 Unspecified severe protein-calorie malnutrition; G92 Toxic encephalopathy; N17.0 Acute kidney failure with tubular necrosis; C25.0 Malignant neoplasm of head of pancreas; E87.0 Hyperosmolality and hypernatremia; K92.2 Gastrointestinal hemorrhage, unspecified; R57.1 Hypovolemic shock; D69.6 Thrombocytopenia, unspecified; Z66 Do not resuscitate; J44.9 Chronic obstructive pulmonary disease, unspecified; F03.90 Unspecified dementia, unspecified severity, without behavioral disturbance, psychotic disturbance, mood disturbance, and anxiety; E11.9 Type 2 diabetes mellitus without complications; K21.9 Gastro-esophageal reflux disease without esophagitis; M19.90 Unspecified osteoarthritis, unspecified site; I11.0 Hypertensive heart disease with heart failure; I50.9 Heart failure, unspecified; G43.909 Migraine, unspecified, not intractable, without status migrainosus; Z86.718 Personal history of other venous thrombosis and embolism; Z68.20 Body mass index [BMI] 20.0-20.9, adult; Z86.73 Personal history of transient ischemic attack (TIA), and cerebral infarction without residual deficits; Z79.01 Long term (current) use of anticoagulants; Z90.49 Acquired absence of other specified parts of digestive tract; Z90.710 Acquired absence of both cervix and uterus; Z82.49 Family history of ischemic heart disease and other diseases of the circulatory system; Z83.3 Family history of diabetes mellitus; Z88.0 Allergy status to penicillin; Z79.899 Other long term (current) drug therapy; Z79.82 Long term (current) use of aspirin; Z51.5 Encounter for palliative care
CPT/HCPCS: 36415; 80048; 80053; 82271; 83690; 83735; 85007; 85025; 85610; 85730; 86850; 86900; 86901; 93005; 93010; 94760; C9113; J2270; J3010; J7040; J7070